=== PATIENT | male | born 1945 | race Caucasian/White ===

== ENCOUNTER 2016-11-17 15:40 | Emergency (ER) | payer OTHER ==
[~2016-11-17 15:40] MED LIST: ASPI81TA82 PO; FINA5TAB77 PO; LISI-363 PO; MAGN400C2 PO; OMEP20TA39 PO; REST7.5C PO; TERA10CA3 PO; TRAZ100 PO; VALP250 PO; VENL-39 PO; VITA500T49 PO; ZOCO80TA PO
[2016-11-17 15:43] VITALS: BP 189/77; PULSE 69; RESP 20; TEMP 98.9; O2SAT 98
--- NOTE | 2016-11-17 15:54 | PD ---
Physical Exam Time Seen by Provider: 15:50 Narrative Pt presents to the ED for evaluation low heart rate with lightheadedness for the past 3 days. States his heart rate has been in the 40s. C/o left shoulder pain since last night[facility] Awaiting bed placement. Data Data Last Documented VS Vital Signs Date Time Temp Pulse Resp B/P Pulse Ox O2 Delivery O2 Flow Rate FiO2 11/17/16 15:43 98.9 69 20 189/77 98 Room Air MDM Supervised Visit with NESTOR: Nati Daniels Nov 17, 2016 15:54
[2016-11-17 16:24] VITALS: BP 156/85; O2SAT 97
[2016-11-17 16:29] LABS: AUTOMATED NEUTROPHIL # 4.6 TH/MM3 (1.8-7.7); BASOPHIL % 0.5 % (0.0-2.0); EOSINOPHIL % 0.1 % (0.0-4.0); LYMPH % 24.4 % (9.0-44.0); LYMPHOCYTE # 1.6 TH/MM3 (1.0-4.8); MEAN CELL VOLUME 70.6 FL (80.0-100.0); MEAN CORPUSCULAR HEMOGLOBIN 22.9 PG (27.0-34.0); MEAN CORPUSCULAR HGB CONC 32.4 % (32.0-36.0); MONO % 6.2 % (0.0-8.0); NEUT % 68.8 % (16.0-70.0); PLATELET COUNT 252 TH/MM3 (150-450); RED BLOOD COUNT 4.96 MIL/MM3 (4.50-5.90); RED CELL DISTRIBUTION WIDTH 15.3 % (11.6-17.2); WHITE BLOOD COUNT 6.7 TH/MM3 (4.0-11.0)
[2016-11-17] MEDS ORDERED: SODIUM CHLORIDE 0.9% FLUSH 10 ML FLUSH IVF PRN (16:30)
[2016-11-17 16:32] LABS: HEMO FLAGS AUTO DIFF
--- NOTE | 2016-11-17 16:33 | PD ---
HPI . Dizziness Chief Complaint: Cardiac Complaint Time Seen by Provider: 16:09 Travel History International Travel<30 days: No Contact w/Intl Traveler<30days: No Traveled to known affect area: No History of Present Illness HPI Patient presents to us complaining with dizziness and slow heart rate. He has a home blood pressure [facility] His monitor has been reporting a low heart rate for the last couple days. Patient reports that he has been feeling intermittently dizzy. He states that the dizziness is so severe that it has caused him to almost fall twice. He was unable to further characterize the dizziness. He denies any chest pain but states he did have some left shoulder pain. He denied shortness of breath to me. He does complain with some nausea but denies vomiting or diarrhea. He has not had any fever. He denies blurred vision. He has not noted any exacerbating or relieving factors. He states that he has been absent minded the last couple of days. PFSH Past Medical History Hx Anticoagulant Therapy: Yes (81 MG ASA) Anemia: Yes Anxiety: Yes Depression: Yes Cardiovascular Problems: Yes High Cholesterol: Yes Chest Pain: Yes COPD: Yes Coronary Artery Disease: Yes Diminished Hearing: No Gastrointestinal Disorders: Yes (COLON POYPS) GERD: Yes Genitourinary: Yes (BPH, SCROTAL/TESTICULAR MASS) Headaches: Yes Hypertension: Yes Musculoskeletal: Yes (DDD) Neurologic: Yes (R CARPLE TUNNEL) Psychiatric: Yes (PTSD, DEPRESSIVE DISORDER) Immunizations Current: Yes Past Surgical History Appendectomy: Yes Social History Alcohol Use: Yes (Occ.) Tobacco Use: Yes (LESS THAN 1/2 PPD) Substance Use: No Allergies-Medications (Allergen,Severity, Reaction): Coded Allergies: No Known Allergies (Unverified , 04/07/16) Reported Meds & Prescriptions Reported Meds & Active Scripts Active Reported Vitamin B12 (Cyanocobalamin) 500 Mcg Tab 250 Mcg PO BID Lisinopril 20 mg (Lisinopril) 20 Mg Tab 1 Tab PO DAILY Restoril 7.5 mg (Temazepam) 7.5 Mg Cap 1 Cap PO HS Depakene 250 mg (Valproic Acid) 250 Mg Cap 1 Cap PO BID Venlafaxine Hcl Er 75 Mg Tab (Venlafaxine HCl) 75 Mg Domingo 150 Mg PO DAILY Magnesium (Magnesium Oxide (Mg Supplement) 400 Mg Cap 800 Mg PO DAILY Trazodone Hcl (Trazodone HCl) 100 Mg Tab 100 Mg PO HS Aspir-81 (Aspirin) 81 Mg Tab 81 Mg PO HS Zocor 80 mg (Simvastatin) 80 Mg Tab 0.5 Tab PO HS Proscar 5 Mg Tab (Finasteride) 5 Mg Tab 5 Mg PO DAILY Terazosin Hcl (Terazosin HCl) 10 Mg Cap 10 Mg PO HS Hm Omeprazole (Omeprazole) 20 Mg Tab 40 Mg PO DAILY Review of Systems Except as stated in HPI: all other systems reviewed are Neg General / Constitutional: No: Fever, Chills Eyes: No: Blurred Vision HENT: Positive: Lightheadedness, No: Headaches Cardiovascular: Positive: Irregular Rhythm, No: Chest Pain or Discomfort Respiratory: No: Shortness of Breath Gastrointestinal: Positive: Nausea, No: Vomiting, Diarrhea Genitourinary: Positive: Hesitancy Musculoskeletal: Positive: Arthralgias Neurologic: Positive: Weakness, Dizziness, No: Syncope, Focal Abnormalities, Headache, Change in Mentation, Slurred Speech, Paresthesia, Incontinence Physical Exam Narrative GENERAL: Patient is awake and alert and does not appear to be in any acute distress. SKIN: Warm and dry. HEAD: Atraumatic. Normocephalic. EYES: Pupils equal and round. Extraocular movements are intact. ENT: No nasal bleeding or discharge. Mucous membranes pink and moist. NECK: Trachea midline. Neck is supple. CARDIOVASCULAR: He is in a bigeminy rhythm. The PVCs are not producing a pulse. So, his effective heart rate is about 36. RESPIRATORY: No accessory muscle use. Lungs are clear with full air movement throughout. GASTROINTESTINAL: Abdomen soft, non-tender, nondistended. MUSCULOSKELETAL: No obvious deformities. No edema. NEUROLOGICAL: Awake and alert. No obvious cranial nerve deficits. Motor grossly within normal limits. Normal speech. PSYCHIATRIC: Appropriate mood and affect; insight and judgment normal. Data Data Last Documented VS Vital Signs Date Time Temp Pulse Resp B/P Pulse Ox O2 Delivery O2 Flow Rate FiO2 11/17/16 16:24 97 11/17/16 16:24 76 11/17/16 16:24 156/85 11/17/16 15:43 98.9 20 Room Air Orders Electrocardiogram (11/17/16 ) Basic Metabolic Panel (Bmp) (11/17/16 16:18) Ckmb (Isoenzyme) Profile (11/17/16 16:18) Complete Blood Count With Diff (11/17/16 16:18) D-Dimer (11/17/16 16:18) Magnesium (Mg) (11/17/16 16:18) Prothrombin Time / Inr (Pt) (11/17/16 16:18) Act Partial Throm Time (Ptt) (11/17/16 16:18) Troponin I (11/17/16 16:18) Chest, Single Ap (11/17/16 16:18) Ecg Monitoring (11/17/16 16:18) Bilateral Bp Monitoring (11/17/16 16:18) Iv Access Insert/Monitor (11/17/16 16:18) Oximetry (11/17/16 16:18) Sodium Chloride 0.9% Flush (Ns Flush) (11/17/16 16:30) Ct Brain W/O Iv Contrast(Rout) (11/17/16 16:18) CKMB (11/17/16 16:20) CKMB% (11/17/16 16:20) Ct Pulmonary Angiogram (11/17/16 17:45) Iohexol 350 Inj (Omnipaque 350 Inj) (11/17/16 18:26) Labs Laboratory Tests Test 11/17/16 16:20 White Blood Count 6.7 TH/MM3 Red Blood Count 4.96 MIL/MM3 Hemoglobin 11.3 GM/DL Hematocrit 35.0 % Mean Corpuscular Volume 70.6 FL Mean Corpuscular Hemoglobin 22.9 PG Mean Corpuscular Hemoglobin 32.4 % Concent Red Cell Distribution Width 15.3 % Platelet Count 252 TH/MM3 Mean Platelet Volume 8.0 FL Neutrophils (%) (Auto) 68.8 % Lymphocytes (%) (Auto) 24.4 % Monocytes (%) (Auto) 6.2 % Eosinophils (%) (Auto) 0.1 % Basophils (%) (Auto) 0.5 % Neutrophils # (Auto) 4.6 TH/MM3 Lymphocytes # (Auto) 1.6 TH/MM3 Monocytes # (Auto) 0.4 TH/MM3 Eosinophils # (Auto) 0.0 TH/MM3 Basophils # (Auto) 0.0 TH/MM3 CBC Comment AUTO DIFF Differential Comment AUTO DIFF CONFIRMED Platelet Estimate NORMAL Platelet Morphology Comment NORMAL Prothrombin Time 11.1 SEC Prothromb Time International 1.0 RATIO Ratio Activated Partial 24.6 SEC Thromboplast Time D-Dimer Quantitative (PE/DVT) 0.59 MG/L FEU Sodium Level 141 MEQ/L Potassium Level 3.9 MEQ/L Chloride Level 108 MEQ/L Carbon Dioxide Level 27.9 MEQ/L Anion Gap 5 MEQ/L Blood Urea Nitrogen 12 MG/DL Creatinine 1.13 MG/DL Estimat Glomerular Filtration 64 ML/MIN Rate Random Glucose 127 MG/DL Calcium Level 8.2 MG/DL Magnesium Level 2.0 MG/DL Total Creatine Kinase 674 U/L Creatine Kinase MB 1.4 NG/ML Creatine Kinase MB % 0.2 % Troponin I LESS THAN 0.02 NG/ML MDM Medical Decision Making Medical Screen Exam Complete: Yes Emergency Medical Condition: Yes Medical Record Reviewed: Yes (patient has been seen here before with very similar symptoms. He was hemodynamically stable and was subsequently discharged to home.) Interpretation(s) EKG shows bigeminy. No acute ischemic changes. Differential Diagnosis Differential diagnosis of palpitations includes but is not limited to anxiety, SVT, aVF with RVR, VT, sinus tachycardia, PVCs Narrative Course Patient presents with dizziness and bigeminy. Systolic blood pressures about 160. CBC & BMP Diagram 11/17/16 16:20 Troponin is negative. D-dimer is 0.59. He has a positive PERC score based on his age. Last Impressions Head CT 11/17/168 Signed Impressions: Service Date/Time: Thursday, November 17, 2016 16:38 - CONCLUSION: Normal examination. Ward Foster MD Chest X-Ray 11/17/168 Signed Impressions: Service Date/Time: Thursday, November 17, 2016 16:42 - CONCLUSION: No acute disease. Ward Foster MD The chest x-ray was independently viewed by me. CT for PE was negative. Patient reports that he feels fine and is ready to go home. Diagnosis Primary Impression: Bigeminy Patient Instructions: General Instructions, Premature Ventricular Contractions (DC) Disposition: 01 DISCHARGE HOME Condition: Stable Alina James MD Nov 17, 2016 16:33
[2016-11-17 16:44] LABS: APTT (PATIENT) 24.6 SEC (24.3-30.1); PROTHROMBIN TIME - PATIENT 11.1 SEC (9.8-11.6)
[2016-11-17 16:46] LABS: ANION GAP 5 MEQ/L (5-15); BICARBONATE 27.9 MEQ/L (21.0-32.0); BLOOD UREA NITROGEN 12 MG/DL (7-18); CHLORIDE 108 MEQ/L (98-107); GLOMERULAR FILTRATION RATE 64 ML/MIN (>89); POTASSIUM 3.9 MEQ/L (3.5-5.1); SODIUM (NA) 141 MEQ/L (136-145)
[2016-11-17 16:49] LABS: CREATINE KINASE 674 U/L (39-308)
--- NOTE | 2016-11-17 16:55 | RADRPT ---
EXAM DATE/TIME: 11/17/2016 16:38 [facility] COMPARISON: CT BRAIN W/O CONTRAST, April 18, 2015, 15:30. INDICATIONS : Dizziness. RADIATION DOSE: 43.58 CTDIvol (mGy) MEDICAL HISTORY : Cardiovascular disease. Hypertension. SURGICAL HISTORY : Appendectomy. ENCOUNTER: Initial ACUITY: 3 days PAIN SCALE: 2/10 LOCATION: Bilateral cranial TECHNIQUE: Multiple contiguous axial images were obtained of the head. Using automated exposure control and adj ustment of the mA and/or kV according to patient size, radiation dose was kept as low as reasonably a chievable to obtain optimal diagnostic quality images. FINDINGS: CEREBRUM: The ventricles are normal for age. No evidence of midline shift, mass lesion, hemorrhage or acute in farction. No extra-axial fluid collections are seen. POSTERIOR FOSSA: The cerebellum and brainstem are intact. The 4th ventricle is midline. The cerebellopontine angle i s unremarkable. EXTRACRANIAL: The visualized portion of the orbits is intact. SKULL: The calvaria is intact. No evidence of skull fracture. CONCLUSION: Normal examination. Ward Foster MD on November 17, 2016 at 16:52 Board Certified Radiologist. This report was verified electronically.
[2016-11-17 17:01] LABS: CKMB 1.4 NG/ML (0.5-3.6)
[2016-11-17 17:25] LABS: PLATELET ESTIMATE SMEAR NORMAL (NORMAL); PLATELET MORPHOLOGY NORMAL (NORMAL); SCAN/DIFF AUTO DIFF CONFIRMED
--- NOTE | 2016-11-17 17:31 | RADRPT ---
EXAM DATE/TIME: 11/17/2016 16:42 [facility] COMPARISON: CHEST SINGLE AP, April 07, 2016, 17:20. INDICATIONS : Low heart rate. Patient was sent from the [facility] with a low heart rate. MEDICAL HISTORY : Hypertension. SURGICAL HISTORY : None. ENCOUNTER: Initial ACUITY: 3 days PAIN SCORE: 0/10 LOCATION: Bilateral chest FINDINGS: A single view of the chest demonstrates the lungs to be symmetrically aerated without evidence of mas s, infiltrate or effusion. The cardiomediastinal contours are unremarkable. Osseous structures are intact. CONCLUSION: No acute disease. Ward Foster MD on November 17, 2016 at 17:29 Board Certified Radiologist. This report was verified electronically.
[2016-11-17] MEDS ORDERED: IOHEXOL 350 MG/ML 10 ML VIAL (for RAD DIAG) IV ONE (18:26)
--- NOTE | 2016-11-17 18:54 | RADRPT ---
EXAM DATE/TIME: 11/17/2016 18:21 [facility] COMPARISON: No previous studies available for comparison. INDICATIONS : Shortness of breath for 3 days; evaluate for pulmonary embolism. IV CONTRAST: 75 cc Omnipaque 350 (iohexol) IV RADIATION DOSE: 23.21 CTDIvol (mGy) MEDICAL HISTORY : Cardiovascular disease. Hypertension. SURGICAL HISTORY : None. ENCOUNTER: Initial ACUITY: 3 days PAIN SCALE: 0/10 LOCATION: chest TECHNIQUE: Volumetric scanning of the chest was performed using a pulmonary embolism protocol MIP images were re constructed. Using automated exposure control and adjustment of the mA and/or kV according to patien t size, radiation dose was kept as low as reasonably achievable to obtain optimal diagnostic quality images. FINDINGS: PULMONARY ARTERIES: No filling defects are seen in the pulmonary arteries through the segmental level. However, clot is s een in the lower pulmonary veins, most conspicuous on the left. LUNGS: Mild dependent atelectasis of both bases. PLEURAE: There is no pleural thickening or pleural effusion. MEDIASTINUM: There is good visualization of the great vessels of the middle mediastinum. No evidence of mediastin al or hilar adenopathy/mass. MUSCULOSKELETAL: Within normal limits for patient age. MISCELLANEOUS: Small fat-containing Bochdalek hernias on both sides. There is a small hiatal hernia. CONCLUSION: 1. No pulmonary embolus. 2. Partially thrombosed inferior pulmonary veins on both sides, especially the left. 3. Mild bibasilar atelectasis. 4. Incidentally seen small fat-containing Bochdalek hernias and small hiatal hernia. 5. There is left-sided predominant coronary artery calcification. Timothy Avilez MD on November 17, 2016 at 18:50 Board Certified Radiologist. This report was verified electronically.
[2016-11-17 19:58] VITALS: BP 169/84
--- NOTE | 2016-11-18 21:02 | EKG ---
Date Performed: 11/17/2016 Time Performed: 16:07:47 PTAGE: 71 years EKG: Sinus rhythm WITH FREQUENT VENTRICULAR PREMATURE COMPLEXES IN A BIGEMINAL PATTERN ABNORMAL RHYTHM ECG NO PREVIOUS TRACING DOCTOR: Rusty Mcintosh Interpretating Date/Time 11/18/2016 21:01:25
== END 2016-11-17 20:19 | disposition home or self-care (01) ==
LOC: NEPC 15:40
DX: R00.8 Other abnormalities of heart beat (principal); R42 Dizziness and giddiness; R06.02 Shortness of breath; I49.3 Ventricular premature depolarization; E78.00 Pure hypercholesterolemia, unspecified; J44.9 Chronic obstructive pulmonary disease, unspecified; I25.10 Atherosclerotic heart disease of native coronary artery without angina pectoris; I10 Essential (primary) hypertension; F43.10 Post-traumatic stress disorder, unspecified; F17.210 Nicotine dependence, cigarettes, uncomplicated; K21.9 Gastro-esophageal reflux disease without esophagitis
CPT/HCPCS: 70450; 71010; 71275; 80048; 82550; 82552; 83735; 84484; 85025; 85379; 85610; 85730; 93005; 99284; Q9967

== ENCOUNTER 2017-02-10 07:52 | Day surgery (SDC) | payer OTHER ==
[~2017-02-10] VITALS: Ht 160 cm; Wt 67.6 kg
[2017-02-10] MEDS ORDERED: NS 1000P @30 MLS/HR (KVO) IV SCH (08:30)
[2017-02-10 08:31] VITALS: BP 122/74; PULSE 59; RESP 18; TEMP 98.2; O2SAT 97
[2017-02-10 08:38] LABS: AUTOMATED NEUTROPHIL # 3.7 TH/MM3 (1.8-7.7); BASOPHIL % 0.4 % (0.0-2.0); EOSINOPHIL % 0.3 % (0.0-4.0); HEMATOCRIT 33.6 % (39.0-51.0); HEMO FLAGS DIFF FINAL; LYMPH % 32.3 % (9.0-44.0); MEAN CELL VOLUME 71.6 FL (80.0-100.0); MEAN CORPUSCULAR HEMOGLOBIN 22.9 PG (27.0-34.0); MEAN CORPUSCULAR HGB CONC 31.9 % (32.0-36.0); MONO % 6.5 % (0.0-8.0); NEUT % 60.5 % (16.0-70.0); PLATELET COUNT 291 TH/MM3 (150-450); RED BLOOD COUNT 4.69 MIL/MM3 (4.50-5.90); RED CELL DISTRIBUTION WIDTH 15.6 % (11.6-17.2); WHITE BLOOD COUNT 6.1 TH/MM3 (4.0-11.0)
[2017-02-10] MEDS ORDERED: SIMV80TA PO (08:38)
[2017-02-10] MEDS ORDERED: MAGN400T2 PO (08:38)
[2017-02-10] MEDS ORDERED: ASPI81TA11 PO (08:38)
[2017-02-10] MEDS ORDERED: TEMA7.5C PO (08:38)
[2017-02-10] MEDS ORDERED: VITA250L BUCCAL (08:38)
[2017-02-10] MEDS ORDERED: LISI-519 PO (08:38)
[2017-02-10] MEDS ORDERED: FINA5TAB2 PO (08:38)
[2017-02-10] MEDS ORDERED: TERA10CA3 PO (08:38)
[2017-02-10] MEDS ORDERED: OMEP20TA PO (08:38)
[2017-02-10] MEDS ORDERED: TRAZ100T6 PO (08:38)
[2017-02-10 08:50] LABS: APTT (PATIENT) 24.6 SEC (24.3-30.1); PROTHROMBIN TIME - PATIENT 10.7 SEC (9.8-11.6)
[2017-02-10 08:53] LABS: BICARBONATE 28.4 MEQ/L (21.0-32.0); POTASSIUM 3.9 MEQ/L (3.5-5.1)
[2017-02-10] MEDS ORDERED: HEPARIN-NS/PF INJ 500 ML ONE (10:23)
[2017-02-10] MEDS ORDERED: MIDAZOLAM HCL 2 MG/2 ML VIAL ONE (10:24)
[2017-02-10] MEDS ORDERED: VERAPAMIL HCL 5 MG/2 ML VIAL ONE (10:24)
[2017-02-10] MEDS ORDERED: HEPARIN SODIUM - IV 10,000 UNITS/10 ML VIAL ONE (10:24)
[2017-02-10] MEDS ORDERED: NITROGLYCERIN INJ 5 ML ONE (10:24)
[2017-02-10] MEDS ORDERED: IOHEXOL 350 MG/ML 50 ML BTL (for Cath Lab) OTHER ONE (10:39)
--- NOTE | 2017-02-10 11:42 | CATHPROC ---
[facility] HIS Report Study Information Study Number Admission Scheduled Start Study Start [id number] Feb 10 2017 7:52AM 02/10/2017 Feb 10 2017 10:10AM [facility] Cardiac Catheterization Admit Source Facility Department Other [facility] - Physical Therapist Clinic Director Physician and Clinical Staff Initial Eric Smith Golf Course Manager Tonya Howard RN Golf Course Manager Veronica Garay,MARLONRN Other cathlab, cathlab Recorder Amelia Casas,OBSTETRICS SPECIALIST TECH2 Scrub Rodríguez Rey RCIS(BS) Procedures Performed Procedure Location (Site) Vessel Name Coronary Angiograms LCA Left Coronary Coronary Angiograms RCA Right Coronary IVUS LAD Ost Left Coronary L Heart Cath PTCA ADD ON'S Wire insertion Radial (right) Radial Art. Equipment Time Music Orchestrator Description Size Mfg Part Number Used/Scraped WIRE, BALANCE MIDDLEWEIGHT [id number] 11:08 [employer] 190CM Used 190CM *[id number] TRANSDUCER, TRUWAVE [id number] 10:11 WAITE HOWARD * Used W/STOCKCOCK *[id number] *[id number] [id number] *[id number] 10:11 [employer] PACK, CCL CUSTOM * Used *[id number] 10:11 [employer] SUPPORT, ARTERIAL ADULT [id number] Used [id number] 11:06 [employer]/AVE EBU 3.5 Z2 GUIDE CATHETER FR 6 Used *[id number] 11:07 Ooploo 30 JOELLE INDEFLATOR Used *[id number] BAND, RADIAL COMPRESSION TR [id number] 11:30 [employer]oploo 29CM Used LARGE 29 *[id number] 10:39 [employer] WIRE, EXCHANGE 260CM 3MMJ 260CM Used *[id number] 10:11 NAMIC MANIFOLD, 4 PORT * Used *[id number] 10:11 NYCOMED OMNIPAQUE, 350 MG, 150ML 150ML [id number] Used [id number] 10:11 [employer],WARM AIR CCL * Used *[id number] SHEATH, FR6 TRANSRADIAL 10:11 [employer] MEDICAL FR 6 [id number] Used SLENDER 10CM CATHETER, [employer] [place] [place] [id number] 11:11 VOLCAN[employer] Used IMAGING *[id number] Equipment Model, Serial, Lot Number and Expiration Data Description Model Number Serial Number Lot Number Expiration Date CATHETER, [employer] [id number] 11-05-2018 IMAGING History: Current Medications Medication Dosage/Unit Route Frequency Last Date/Time Taken ASA LISINOPRIL Statins (any) History: Allergies Allergy Reaction No Known Allergies History: Risk Factors Family History of Hypertension Dyslipidemia Previous NV Previous Heart Failure Premature CAD Yes Yes No No No Prior Valve Prior PCI Prior CABG Surgery No No No Cerebrovascular Peripheral Artery Chronic Lung On Dialysis Diabetes Disease Disease Disease No No No No No History: Symptoms/Diagnosis Selection Items Angina-unstable History: Stress Tests Stress or Imaging Studies Performed Yes Standard Exercise Stress Test No Stress Echo No Stress Test SPECT No Stress Test CMR Stress Test CMR Result Yes Positive Cardiac CTA Coronary Calcium Score No No History: Other Disease Selection Items HTN History: Other Current Smoker Method Years Used Yes Cigarettes 50 Comment 1/4 pack per day Labs Hgb (g/dl) Hct (%) RBC (MIL/MM3) WBC (l/cumm) Platelets (thousands) 11.60-17.00 35.00-51.00 4.00-5.90 4.00-11.00 150.00-450.00 10.7 33.6 4.6 6.1 291 Glucose (mg/dl) BUN (mg/dl) Creatinine (mg/dl) BUN:Creatinine (1:x) 74.00-106.00 7.00-18.00 0.50-1.30 10.00-20.00 97 16 1.0 16 Na (meq/l) K (meq/l) Cl (meq/l) CO2 (mmol/L) Ca (mg/dl) 136.00-145.00 3.50-5.10 98.00-107.00 21.00-32.00 8.50-10.10 142 3.9 108 28.4 8.1 PT (sec) PTT (sec) INR (PTT:PT) 9.80-11.60 24.30-30.10 0.90-1.10 10.7 24.6 1 Medication Medication Total Dose (Bolus/Oral) Medication Total Dosage/Unit 1% XYLOCAINE 10 mL FENTANYL 25 mcg HEPARIN 4800 units RADIAL COCKTAIL 5 mL (Bolus) VERSED 0.5 mg Medications (Bolus/Oral) Medication Time Given Dosage/Unit Administered By Reason VERSED 02/10/2017 10:48:43 AM 0.5 mg Tonya Howard 0.5 mg VERSED given in lab by Tonya Howard RN in Right Antecubital via Peripheral IV. Ordered b y Eric Atkins. FENTANYL 02/10/2017 10:49:07 AM 25 mcg Tonya Howard 25 mcg FENTANYL given in lab by Tonya Howard RN in Left Antecubital via Peripheral IV. Ordered by Eric Atkins. 1% XYLOCAINE 02/10/2017 10:50:01 AM 10 mL rEic Atkins 10 mL 1% XYLOCAINE given in lab by Eric Atkins in Right Radial via Subcutaneous. Ordered by Eric Millard. RADIAL COCKTAIL 02/10/2017 10:50:57 AM 5 mL (Bolus) Eric Atkins 5 mL (Bolus) RADIAL COCKTAIL given in lab by Eric Atkins via Radial. Using [Solution Name]. Ord ered by Eric Atkins. 2800 heparin,2.5verapamil,200nitro HEPARIN 02/10/2017 11:05:58 AM 4800 units Tonya Howard 4800 units HEPARIN given in lab by Tonya Howard RN in Left Antecubital via Peripheral IV. Order ed by Eric Atkins. Medication (Drip) Medication Time Given Dosage/Unit Concentration/Unit Diluent (ml) Solution IV Solutions 02/10/2017 10:26:28 AM 0 mL (IV) 500 NaCl .9 IV Solutions given in lab by Tonya Howard RN in Left Antecubital via Peripheral IV. Pump/Drip F low = 20 ml/hr using NaCl .9. Ordered by Eric Atkins. Initial Case Assessment Cardiovascular HR NIBP 55 119/74 Edema Present Skin color Skin None Normal Warm Dry Circulatory - Right Pulses Dorsalis Pedis Femoral 2 2 Scale (0,1,2,3,4,d) Circulatory - Left Pulses Dorsalis Pedis Femoral 2 2 Scale (0,1,2,3,4,d) Neurological State Oriented to time-place- Alert Moves all extremities person Respiration - General Respiration Rate SpO2 (%) (B/min) 16 99 Final Case Assessment Cardiovascular HR NIBP 59 127/71 Edema Present Skin color Skin None Normal Warm Dry Circulatory - Right Pulses Dorsalis Pedis Femoral 2 2 Scale (0,1,2,3,4,d) Circulatory - Left Pulses Dorsalis Pedis Femoral 2 2 Scale (0,1,2,3,4,d) Neurological State Oriented to time-place- Alert Moves all extremities person Respiration - General Respiration Rate SpO2 (%) (B/min) 16 100 Chronological Log Time Study Chronological Log 10:21:57 Patient arrived via Bed. 10:21:58 Patient Name, D.O.B, / Armband Verified By R.N. Vitals capture started with the following parameters, Patient=Adult, Interval=5 min, Initial Pr ibggei=404 mmHg, 10:26:14 Deflation Rate=5 mmHg 10:26:18 Consent signed by the physician and the patient and verified by the Physical Therapist Clinic Director staff. 10:26:19 Pre-op and post- op instructions given; patient acknowledges understanding of instructions. 10:26:21 Patient has been NPO for More than 6Hrs. 10:26:22 Skin Breakdown- 10:26:23 Patient Warmer Placed on the Table. 10:26:24 Cordelia Prominences Protected 10:26:27 A # 20 IV was noted in the Antecubital (left). Grade = 0 IV Solutions given in lab by Tonya Howard, RN in Left Antecubital via Peripheral IV. Pump/ Drip Flow = 20 ml/hr 10:26:28 using NaCl .9. Ordered by Eric Atkins. 10:26:29 History and physical on the chart or being dictated. 10:26:55 HR=56 bpm, YCDA=575/74 mmhg, SpO2=99.0 %, Resp=18 B/min, Pain=0, Turner=10, Angela=2 10:27:16 Reference ECG taken Assessment: Initial Case, HR=55 BPM, GIED=971/74 mmhg, Edema=None, Color=Normal, Skin = Warm, D ry Right Pulses: Alphonso Ped=2, Femoral=2 10:27:26 Left Pulses: Alphonso Ped=2, Femoral=2 Neurological: State=Alert, Ox3, ENCARNACION Respiration: Resp=16 B/min, SpO2=99 % 10:32:31 HR=54 bpm, EWGD=645/73 mmhg, PjT4=801.0 %, Resp=15 B/min, Pain=0, Turner=10, Angela=2 10:36:51 HR=55 bpm, QTQQ=633/75 mmhg, SpO2=98.0 %, Resp=19 B/min, Pain=0, Turner=10, Angela=2 10:37:38 Right Radial and right groin prepped with 2% chlorhexidine, and with a 3 min. waiting time. 10:39:32 Pressure channel 1 zeroed. 10:41:57 HR=56 bpm, YOHZ=751/73 mmhg, SpO2=99.0 %, Resp=17 B/min, Pain=0, Turner=10, Angela=2 10:46:56 HR=56 bpm, YROD=311/73 mmhg, SpO2=99.0 %, Resp=14 B/min, Pain=0, Turner=10, Angela=2 Time Out. Correct patient, correct procedure,correct physician, power injector not loaded with contrast with surgical 10:48:17 team present. Time Out Concurred by , individual staff in procedure 10:48:41 Case Start 0.5 mg VERSED given in lab by Tonya Howard RN in Right Antecubital via Peripheral IV. Ord ered by Wilbert 10:48:43 Eric. 25 mcg FENTANYL given in lab by Tonya Howard RN in Left Antecubital via Peripheral IV. Or dered by Wilbert 10:49:07 Eric. 10 mL 1% XYLOCAINE given in lab by Eric Atkins in Right Radial via Subcutaneous. Ordered by Wilbert, 10:50:01 Eric. 10:50:25 Access site was Radial Artery. 5 mL (Bolus) RADIAL COCKTAIL given in lab by Eric Atkins via Radial. Using [Solution Name ]. Ordered by 10:50:57 Eric Atkins. 2800 heparin,2.5verapamil,200nitro A JR 4.0 INFINITI CATHETER FR 5 was advanced over a wire. OMNIPAQUE, 350 MG, 150ML 150ML was us ed for 10:51:55 injections. 10:51:57 HR=57 bpm, CXVS=611/62 mmhg, SpO2=97.0 %, Resp=18 B/min, Pain=0, Turner=10, Angela=2 Recorded Pressure: LV, HR=58, Condition=Condition 1 10:53:41 (Left Ventricle) LV 91/1/5 Recorded Pressure: LV, Ao, HR=59, Condition=Condition 1 10:54:04 (Left Ventricle) LV 103/2/4, (Aorta) Ao 101/52/72 10:54:45 The RCA was injected and visualized at various angles. OMNIPAQUE, 350 MG, 150ML 150ML used . Recorded Pressure: Ao, HR=61, Condition=Condition 1 10:54:52 (Aorta) Ao 103/60/79 After removing the current catheter a JL 3.5 INFINITI CATHETER FR 5 was advanced over a WIRE, E XCHANGE 260CM 10:55:35 3MMJ 260CM. 10:56:52 HR=63 bpm, GCZR=144/63 mmhg, SpO2=93.0 %, Resp=13 B/min, Pain=0, Turner=10, Angela=2 11:00:16 The LCA was injected and visualized at various angles. OMNIPAQUE, 350 MG, 150ML 150ML used . 11:01:51 HR=61 bpm, AVJV=285/64 mmhg, SpO2=94 %, Resp=20 B/min, Pain=0, Turner=10, Angela=2 4800 units HEPARIN given in lab by Tonya Howard, RN in Left Antecubital via Peripheral IV. Ordered by Wilbert, 11:05:58 Eric. After removing the current catheter a EBU 3.5 Z2 GUIDE CATHETER FR 6 was advanced over a WIRE, EXCHANGE 11:06:43 260CM 3MMJ 260CM. 11:06:56 HR=59 bpm, FMUC=667/65 mmhg, SpO2=97.0 %, Resp=18 B/min, Pain=0, Turner=10, Angela=2 11:07:13 contrast and 30 JOELLE INDEFLATOR added. 11:11:57 HR=57 bpm, ZSXE=366/70 mmhg, SpO2=98.0 %, Resp=21 B/min 11:11:58 A WIRE, BALANCE MIDDLEWEIGHT 190CM 190CM was inserted via Radial (right). 11:14:14 Interventional wire has crossed the lesion 11:16:21 An CATHETER, [employer] IMAG[employer] was advanced through the lesion. Images saved onto IVUS hard drive 11:16:54 HR=57 bpm, ORUK=303/69 mmhg, SpO2=98.0 %, Resp=12 B/min, Pain=0, Turner=10, Angela=2 11:19:04 IVUS in progress using CATHETER, [employer] IMAGING 11:21:57 HR=57 bpm, OMDX=791/72 mmhg, SpO2=97.0 %, Resp=15 B/min, Pain=0, Turner=10, Angela=2 11:25:41 IVUS catheter removed 11:26:23 A WIRE, EXCHANGE 260CM 3MMJ 260CM was inserted via Radial (right). 11:27:00 HR=60 bpm, PANN=912/68 mmhg, IqJ6=021.0 %, Resp=16 B/min, Pain=0, Turner=10, Angela=2 11:29:30 Catheter was removed 11:29:55 Case End 11:29:59 Catheter(s) removed without difficulty Radial Compression Device Used. 9 mLs of air placed in BAND, RADIAL COMPRESSION TR LARGE 29 29 CM. Affected 11:30:09 hand 99 % O2 saturation. 11:30:41 No case complications noted. 11:31:57 HR=59 bpm, QAWM=117/71 mmhg, UxG0=434.0 %, Resp=16 B/min, Pain=0, Turner=10, Angela=2 11:32:44 Cine recording checked. 11:33:23 Vitals capture stopped. Assessment: Final Case, HR=59 BPM, BOBR=970/71 mmhg, Edema=None, Color=Normal, Skin = Warm, Dr y Right Pulses: Alphonso Ped=2, Femoral=2 11:33:34 Left Pulses: Alphonso Ped=2, Femoral=2 Neurological: State=Alert, Ox3, ENCARNACION Respiration: Resp=16 B/min, UaE6=274 % 11:35:15 Bedside Report will be given. 11:35:17 Contrast Scanned 11:35:19 A Left Heart Cath was performed. 11:35:20 [facility]35[facility] Clinical correlaton risk stratification. End Study - Contrast Media Used In Study Contrast Total Opened (mL) Total Used (mL) Total Wasted (mL) Omnipaque 50 50 0 End Study - Maximum Contrast Load Max Contrast Load (mL) 338.0 End Study - Radiation Exposure Fluoro Time (minutes) 10.7 End Study - Patient Disposition Complications Transferred To Telemetry Bed
[2017-02-10] MEDS ORDERED: MISC INFORMATION XX ONE (11:45)
[2017-02-10] MEDS ORDERED: SODIUM CHLORIDE 0.9% FLUSH 10 ML FLUSH IV FLUSH PRN (13:00)
[2017-02-10] MEDS ORDERED: MUPIROCIN 2% OINT 1 APPLIC/GM SYR EACH NARE SCH (13:00)
[2017-02-10] MEDS ORDERED: CHLORHEXIDINE GLUCONATE 4% SOLN 120 ML BTL TOPICAL SCH (13:00)
--- NOTE | 2017-02-10 15:00 | RADRPT ---
EXAM DATE/TIME: 02/10/2017 13:27 [facility] COMPARISON: No previous studies available for comparison. INDICATIONS : Preop cardiac surgery. MEDICAL HISTORY : [place]. COPD. Hypercholesterol. Hypertension. BPH. SURGICAL HISTORY : Appendectomy. ENCOUNTER: Initial ACUITY: 1 day PAIN SCORE: 0/10 LOCATION: Bilateral neck PEAK SYSTOLIC VELOCITIES (cm/sec): ICA/CCA RATIO: Right: 1.6 Left: 1.2 ICA: Right: 121.0 Left: 89.2 CCA: Right: 75.7 Left: 72.4 ECA: Right: 90.3 Left: 49.7 VERTEBRAL: Right: 67.2 antegrade Left: 64.6 antegrade Elevated flow velocities and ICA/CCA ratios have been found to correlate with increased degrees of vessel stenosis, calculated as percentage of diameter relative to a normal segment of distal ICA/CCA FINDINGS: RIGHT CAROTID: No significant stenosis is visualized. There is mild calcified and noncalcified plaque in the mid an d distal common carotid artery and moderate calcified plaque in the carotid bulb. The waveforms are w ithin normal limits.LEFT CAROTID: No significant stenosis is visualized. There is mild calcified plaque in the distal common carotid a rtery and mild to moderate calcified plaque in the carotid bulb. The waveforms are within normal limi ts. VERTEBRAL ARTERIES: Antegrade flow is seen in both vertebral arteries. MISCELLANEOUS: None. CONCLUSION: 1. Moderate atherosclerotic plaque within the carotid bulbs bilaterally. However, velocity measuremen ts indicate less than 50% stenosis. 2. There is antegrade flow in both vertebral arteries. Timothy Cruz MD on February 10, 2017 at 14:56 Board Certified Radiologist. This report was verified electronically.
--- NOTE | 2017-02-10 15:18 | RADRPT ---
EXAM DATE/TIME: 02/10/2017 14:05 [facility] COMPARISON: No previous studies available for comparison. INDICATIONS : Bilateral leg swelling. Preop. MEDICAL HISTORY : [place]. COPD. Hypercholesterol. Hypertension. BPH SURGICAL HISTORY : Appendectomy. ENCOUNTER: Subsequent ACUITY: 1 day PAIN SCORE: 0/10 LOCATION: Bilateral leg. TECHNIQUE: Venous ultrasound of the left and right leg was performed from the inguinal ligament to the proximal calf. Real-time, color Doppler and spectral tracing, compression and augmentation techniques were us ed. FINDINGS: RIGHT LEG: There is normal compressibility of the deep venous system from the inguinal region to the proximal ca lf. No echogenic clot is seen in the lumen of the common femoral, femoral, popliteal, and posterior tibial veins. There is a normal response of the venous system to proximal and distal augmentation an d respiration. LEFT LEG: There is normal compressibility of the deep venous system from the inguinal region to the proximal ca lf. No echogenic clot is seen in the lumen of the common femoral, femoral, popliteal, and posterior tibial veins. There is a normal response of the venous system to proximal and distal augmentation an d respiration. CONCLUSION: No DVT is identified within either lower extremity. Timothy Cruz MD on February 10, 2017 at 15:15 Board Certified Radiologist. This report was verified electronically.
--- NOTE | 2017-02-10 15:41 | RADRPT ---
EXAM DATE/TIME: 02/10/2017 14:22 [facility] COMPARISON: No previous studies available for comparison. INDICATIONS : Preop. Bilateral leg swelling. MEDICAL HISTORY : [place]. COPD. Hypercholesterol. Hypertension. BPH SURGICAL HISTORY : Appendectomy. ENCOUNTER: Initial ACUITY: 1 day PAIN SCORE: 0/10 LOCATION: Bilateral leg. GREATER SAPHENOUS VEIN THIGH: PROXIMAL: Right 6 mm Left 8 mm MID: Right 1 mm Left 2 mm DISTAL: Right 1 mm Left 2 mm CALF: PROXIMAL: Right 2 mm Left 2 mm MID: Right 1 mm Left 2 mm DISTAL: Right 1 mm Left 2 mm FINDINGS: The venous system of the lower extremities are patent by color Doppler imaging. Measurements of the leg veins (in mm) are listed above. CONCLUSION: Venous mapping as above. Donald Barr MD on February 10, 2017 at 15:39 Board Certified Radiologist. This report was verified electronically.
--- NOTE | 2017-02-10 16:13 | RADRPT ---
EXAM DATE/TIME: 02/10/2017 15:58 [facility] COMPARISON: CHEST SINGLE AP, November 17, 2016, 16:42. INDICATIONS : Pre op CABG MEDICAL HISTORY : Hypertension. SURGICAL HISTORY : None. ENCOUNTER: Initial ACUITY: 1 day PAIN SCORE: 0/10 LOCATION: chest FINDINGS: A single view of the chest demonstrates the lungs to be symmetrically aerated without evidence of mas s, infiltrate or effusion. The cardiomediastinal contours are stable. Osseous structures are intact and stable. CONCLUSION: No acute disease. No significant change has occurred. stable Donald Barr MD on February 10, 2017 at 16:11 Board Certified Radiologist. This report was verified electronically.
--- NOTE | 2017-02-10 17:52 | PD.CAR.PN ---
CVT Progress Note Subjective/Hospital Course: pt seen and eval, full consult dictated sts data discussed with pt RISK SCORES About the STS Risk Calculator Procedure: CAB Only Risk of Mortality: 0.995% Morbidity or Mortality: 11.09% Long Length of Stay: 3.665% Short Length of Stay: 53.361% Permanent Stroke: 0.809% Prolonged Ventilation: 6.96% DSW Infection: 0.202% Renal Failure: 1.803% Reoperation: 4.327% Objective: Vital Signs Date Time Temp Pulse Resp B/P Pulse Ox O2 Delivery O2 Flow Rate FiO2 02/10/17 08:31 98.2 59 18 122/74 97 Labs: Laboratory Tests Test 02/10/17 02/10/17 08:23 15:45 White Blood Count 6.1 TH/MM3 (4.0-11.0) Red Blood Count 4.69 MIL/MM3 (4.50-5.90) Hemoglobin 10.7 GM/DL (13.0-17.0) Hematocrit 33.6 % (39.0-51.0) Mean Corpuscular Volume 71.6 FL (80.0-100.0) Mean Corpuscular Hemoglobin 22.9 PG (27.0-34.0) Mean Corpuscular Hemoglobin 31.9 % Concent (32.0-36.0) Red Cell Distribution Width 15.6 % (11.6-17.2) Platelet Count 291 TH/MM3 (150-450) Mean Platelet Volume 7.7 FL (7.0-11.0) Neutrophils (%) (Auto) 60.5 % (16.0-70.0) Lymphocytes (%) (Auto) 32.3 % (9.0-44.0) Monocytes (%) (Auto) 6.5 % (0.0-8.0) Eosinophils (%) (Auto) 0.3 % (0.0-4.0) Basophils (%) (Auto) 0.4 % (0.0-2.0) Neutrophils # (Auto) 3.7 TH/MM3 (1.8-7.7) Lymphocytes # (Auto) 2.0 TH/MM3 (1.0-4.8) Monocytes # (Auto) 0.4 TH/MM3 (0-0.9) Eosinophils # (Auto) 0.0 TH/MM3 (0-0.4) Basophils # (Auto) 0.0 TH/MM3 (0-0.2) CBC Comment DIFF FINAL Differential Comment Prothrombin Time 10.7 SEC (9.8-11.6) Prothromb Time International 1.0 RATIO Ratio Activated Partial 24.6 SEC Thromboplast Time (24.3-30.1) Sodium Level 142 MEQ/L (136-145) Potassium Level 3.9 MEQ/L (3.5-5.1) Chloride Level 108 MEQ/L (98-107) Carbon Dioxide Level 28.4 MEQ/L (21.0-32.0) Anion Gap 6 MEQ/L (5-15) Blood Urea Nitrogen 16 MG/DL (7-18) Creatinine 1.08 MG/DL (0.60-1.30) Estimat Glomerular Filtration 68 ML/MIN (>89) Rate Random Glucose 97 MG/DL (74-106) Calcium Level 8.1 MG/DL (8.5-10.1) Blood Type A POSITIVE Antibody Screen NEGATIVE Blood Bank Comment Result Diagram: 02/10/17 0823 02/10/17 0823 Leydi Ferguson Feb 10, 2017 17:52
--- NOTE | 2017-02-10 18:04 | EKG ---
Date Performed: 02/10/2017 Time Performed: 08:38:22 PTAGE: 71 years EKG: Sinus rhythm with frequent PVCs. Abnormal ECG PREVIOUS TRACING : 11/17/2016 16.07 Compared to prior tracing no significant change DOCTOR: Maggie Hopkins Interpretating Date/Time 02/10/2017 18:03:56
[2017-02-10 18:25] LABS: AST (GOT) 18 U/L (15-37)
[2017-02-10 18:27] LABS: ALKALINE PHOSPHATASE 58 U/L (45-117); ALT (GPT) 19 U/L (12-78); INDIRECT BILIRUBIN 0.2 MG/DL (0.0-0.8); TOTAL BILIRUBIN ADULT 0.3 MG/DL (0.2-1.0)
--- NOTE | 2017-02-10 18:45 | MB ---
cc: KANCHAN FOWLER MD DATE OF CONSULTATION 02/10/17 46 REFERRING PHYSICIAN Patient of Dr. Crow Powell, Dr. Eric Atkins and Dr. Mcintosh HISTORY OF PRESENT ILLNESS A 71-year-old male reported a recent chest discomfort, lightheadedness, occasional episodes of moderate discomfort that started actually a couple of years ago. The pain had lasted minutes, localized to the left side of his body. The moderate lightheadedness began a couple years ago. He had history of some headaches, had been on valproic acid which they did stop. [facility], denied having any shortness of breath. No palpitations. No weight gain or weight loss. Cardiac risk factors include hypertension, smoking, hyperlipidemia. The patient underwent full cardiac workup that included a 2-D echo showing an EF of 60%, grade 1 diastolic dysfunction some mild aortic stenosis, trivial mitral regurgitation, mild MR, trivial pulmonic valve regurgitation. He also underwent Lexiscan which showed partially reversible inferior perfusion defect. No significantly reversible defects to indicate ischemia. He had a Holter monitor that showed some evidence of complex ventricular ectopy, no A, fib or sustained dysrhythmia. He underwent cardiac cath today showing 70% left main, 70% proximal LAD, mid distal LAD 20%, diagonal 20%, circumflex was 10%. The OM was 10%. The RCA 100%. We were consulted to evaluate for coronary artery bypass grafting. PAST MEDICAL HISTORY 1. Some ventricular ectopy 2. Benign prostatic hypertrophy 3. History of some headaches PAST SURGICAL HISTORY No past surgical history. ALLERGIES No known allergies MEDICATIONS Home meds 1. Aspirin 81 daily. 2. Vitamin B12 3. Finasteride 4. Lisinopril five p.o. daily, 5. Mag oxide 6. Omeprazole 7. Simvastatin 8. Temazepam 9. Discontinued apparently Terazosin and Trazodone. FAMILY HISTORY No pertinent cardiovascular family history. SOCIAL HISTORY The patient is , four children. Has smoked a half-a-pack for 40 years. Worked in the [employer] business. No illicit drugs. Occasional beer. REVIEW OF SYSTEMS GENERAL: No night sweats, fever, heat and cold tolerance. SKIN: No psoriasis, itching or hives. HEENT: No blurred vision, hearing loss. RESPIRATORY: No cough, shortness of breath. CARDIOVASCULAR: As above in HPI. GASTROINTESTINAL: No diarrhea, vomiting. GENITOURINARY: No burning, frequency, urgency PERIOPERATIVE ASSISTANT: No history of TIA, CVA, seizure disorder. ENDOCRINE: No history of diabetes or hypothyroidism on PHYSICAL EXAMINATION VITAL SIGNS: Blood pressure 120/70, heart rate 60, temperature max 98.2, respiratory rate of 18. General: Patient is awake, alert in no acute distress. HEENT: Head is normocephalic, atraumatic. Pupils equal and reactive. Oral mucosa pink, moist. NECK: Supple. No JVD. CARDIAC: Heart sounds S1-S2, regular rate and rhythm. No rubs, murmurs, gallops. LUNGS: Clear to auscultation. No wheezes, rales or rhonchi. ABDOMEN: Soft, nontender. No masses or organomegaly. EXTREMITIES: No cyanosis, clubbing or edema. LABORATORY FINDINGS Sodium 142, potassium 3.9, BUN of 16, creatinine 1.08, INR of 1.0. Hemoglobin 10.7, hematocrit 33, white cell count 6.1, platelet count 291, MCV of 71. CARDIOLOGY STUDIES EKG showed sinus rhythm with some PACs. IMPRESSION A 62-year-old male with history of angina who underwent cardiac cath with multivessel disease, normal EF of 60%. Cardiac films have been reviewed by Dr. Kanchan Fowler. PLAN Plan will be for surgery on Tuesday the . Dictated by GEOFF Mendoza MD KARTHIK Arnold/ /5:42 PM /8:35 AM
[2017-02-10 19:00] LABS: BLOOD, URINE NEG (NEG); COMMENT (UR) CULT NOT INDICATED; CULTURE IF INDICATED CULT NOT INDICATED; GLUCOSE,URINE NEG (NEG); KETONE, URINE NEG (NEG); NITRITE,URINE NEG (NEG); PH, URINE 6.5 (5.0-8.5); URINE COLOR YELLOW (YELLW/STRAW)
[2017-02-10 19:51] LABS: HEMOGLOBIN A1a 2.2 %; HEMOGLOBIN A1b 0.8 %; HEMOGLOBIN Ao 83.5 %; HEMOGLOBIN F 1.1 %; HEMOGLOBIN LA1C 2.1 %; HEMOGLOBIN P3 5.6 %
[2017-02-10] MEDS ORDERED: SODIUM CHLORIDE 0.9% FLUSH 10 ML FLUSH IV FLUSH SCH (21:00)
--- NOTE | 2017-02-10 22:49 | MA ---
cc: ERIC WALKER DO DATE OF PROCEDURE February 10, 2017 PROCEDURE Left heart catheterization, coronary angiogram, IVUS left main, moderate sedation 40 minutes. PREPROCEDURE DIAGNOSIS Chest pain on antianginal medications, questionable inferior ischemia infarct on stress test. POSTPROCEDURE DIAGNOSIS Multivessel coronary artery disease with CT of the RCA and left main disease (IVUS 4.3 mm squared). MEDICATIONS 1. Verapamil 2.5 milligrams. 2. Nitro 200 micrograms. 3. Heparin 7600 units. 4. Versed 0.5 milligrams. 5. Fentanyl 25 micrograms. CONTRAST USED 50 cc. FLUOROSCOPY 10.7 minutes. SEDATION Moderate sedation 40 minutes. ESTIMATED BLOOD LOSS 10 cc. PROCEDURAL SUMMARY Dakota Nieves is a pleasant 71-year-old male who has been having chest pain and dizziness while on antianginal medications. He underwent pharmacologic nuclear stress testing and there was question on possible infarct/ischemia in the inferior portion. Because he continued to have pain on antianginals he was recommended cardiac catheterization. Risks, benefits and alternatives were explained to him and he consented as such. He was brought to the lab and prepped in the usual sterile fashion. Right radial artery was accessed using a modified Seldinger technique and placement of a 5/6 Irish slender sheath. This was easily aspirated and flushed. The JR-4 was advanced over a J-wire to the ascending aorta and across the aortic valve into the left ventricle. This was pulled back across the aortic valve showing no significant gradient of aortic stenosis. JR-4 was used for selective angiography of the right coronary artery. This was exchanged for a JL-3.5 which was used for selective angiography of the left coronary artery. There was concern for the distal left main as well as the ostial LAD and so it was felt that this needed to be further investigated. The patient was given heparin as an additional anticoagulant. An EBU 3.5 guide was then engaged into the left main. The BMW wire was advanced down the LAD. An IVUS catheter was then placed in the proximal LAD and pulled back while recording. Review of the images shows that the distal left main measures 4.3 mm squared consistent with significant left main disease. IVUS catheter was then removed. BMW wire was removed. Final shots shows no disruption of the coronary arteries. EBU guide was then removed. A radial band was placed over the arteriotomy site for hemostasis. The patient left the [employer] cardiovascularly stable. FINDINGS Left main, distal portion with 70% stenosis (IVUS area 4.3 mm squared). It bifurcates into an LAD and circumflex. LAD: Ostial disease of 80%. Otherwise the distal portion has diffuse 20-30% but no other significant disease. It gives off one major diagonal with no significant disease. Left circumflex: Moderate size vessel with 50% disease in the ostial portion. Otherwise, no significant disease. It gives off two large obtuse marginals with no significant disease. Right coronary artery: 100% occluded RAIL LAYER over a long portion of the mid region of the vessel. There is significant [id number] collaterals which applied blood flow to the distal PDA. Left ventricular end-diastolic pressure 4. IMPRESSION 1. Chest pain on multiple antianginals. 2. Multivessel coronary artery disease with a RAIL LAYER of the RCA with [id number] collaterals, significant stenosis of the left main artery (IVUS area 4.3 mm squared). RECOMMENDATIONS 1. As Mr. Nieves presented with chest pain on multi antianginals and was found to have multivessel disease the recommendation is that he undergo coronary artery bypass grafting. 2. I have consulted Dr. Fowler and discussed the case with him who will see him today. 3. Most likely he can be discharged home with the recommendation that he has no strenuous activity until his surgery date. 4. He was instructed that if any of his symptoms change or he starts to have chest pain that he present back to the emergency room immediately. 5. Post coronary artery bypass grafting he will follow up with Dr. Mcintosh. Thank you for allowing me to see Dakota Nieves. If there are any questions please do not hesitate to call. Eric Walker DO VGP/EO /9:46 PM /10:32 PM
--- NOTE | 2017-02-15 09:54 | RSPPFT ---
DATE OF PROCEDURE: 02/10/17 COMMENTS: VOLUMES DYNAMIC: FVC and FEV1 normal. FLOWS: FEV1% and FEF 25-75 normal. IMPRESSION: Normal simple spirometry.
== END 2017-02-10 17:44 | disposition home or self-care (01) ==
LOC: HDOC 07:52 → HDIC 07:53 → HDOC 17:44
PROVIDERS: ATTEND Nuclear Medicine Nuclear Cardiology
DX: I25.10 Atherosclerotic heart disease of native coronary artery without angina pectoris (principal); R94.39 Abnormal result of other cardiovascular function study; I49.3 Ventricular premature depolarization; I10 Essential (primary) hypertension; M79.89 Other specified soft tissue disorders; J44.9 Chronic obstructive pulmonary disease, unspecified; Z95.1 Presence of aortocoronary bypass graft; N40.0 Benign prostatic hyperplasia without lower urinary tract symptoms
CPT/HCPCS: 71010; 80048; 80076; 81001; 83036; 85025; 85610; 85730; 86850; 86900; 86901; 87641; 92978; 93005; 93454; 93880; 93970; 93998; 94010; C1753; C1769; C1887; C1893; J1644; J2250; J3010; Q9967

== ENCOUNTER 2017-02-15 15:19 | Inpatient (IN) | payer OTHER, MEDICARE ==
[~2017-02-15] VITALS: Ht 160 cm; Wt 67.5 kg
[~2017-02-15 15:19] MED LIST changes: +ASPI81TA11 PO; -ASPI81TA82 PO; +FINA5TAB2 PO; -FINA5TAB77 PO; -LISI-363 PO; +LISI-519 PO; -MAGN400C2 PO; +MAGN400T2 PO; +OMEP20TA PO; -OMEP20TA39 PO; -REST7.5C PO; +SIMV80TA PO; +TEMA7.5C PO; -TRAZ100 PO; +TRAZ100T6 PO; -VALP250 PO; -VENL-39 PO; +VITA250L PO; -VITA500T49 PO; -ZOCO80TA PO
[2017-02-24] VITALS (10 sets, daily range): BP systolic 111–167; BP diastolic 41–79; PULSE 56–94; RESP 16–20; TEMP 97.4–98.6; O2SAT 96–99
[2017-02-24] MEDS ORDERED: ARTIFICIAL TEARS OPTH OINT 3.5 APPLIC/3.5 GM TUBO ONE (05:00)
[2017-02-24] MEDS ORDERED: VECURONIUM BROMIDE 10 MG VIAL IV ONE (05:00)
[2017-02-24] MEDS ORDERED: NITROGLYCERIN-DEXTROSE INJ 250 ML IV ONE (05:00)
[2017-02-24] MEDS ORDERED: MAGNESIUM SULFATE 1000 MG/2 ML VIAL (PED) IV ONE (05:00)
[2017-02-24] MEDS ORDERED: PHENYLEPHRINE HCL 10 MG/ML VIAL IV ONE (05:00)
[2017-02-24] MEDS ORDERED: AMINOCAPROIC ACID INJ 250 MG/ML 20 ML VIAL IV ONE (05:00)
[2017-02-24] MEDS ORDERED: GLYCOPYRROLATE 0.2 MG/ML VIAL IV ONE (05:00)
[2017-02-24] MEDS ORDERED: SODIUM BICARBONATE 8.4% INJ 50 MEQ/50 ML SYR IV ONE (05:00)
[2017-02-24] MEDS ORDERED: CALCIUM CHLORIDE 10% SOLN 1 GRAM/10 ML SYR IV ONE (05:00)
[2017-02-24] MEDS ORDERED: FUROSEMIDE 100 MG/10 ML VIAL IV PUSH ONE (05:00)
[2017-02-24] MEDS ORDERED: ceFAZolin 2 GM PREMIX 50 ML IV SCH (06:00)
[2017-02-24] MEDS ORDERED: SODIUM CHLORID 0.9% 500 ML IV PRN (06:00)
[2017-02-24] MEDS ORDERED: CEFAZOLIN 500 MG in NS IRR BTL 500 ML IRRIGATION SCH (06:00)
[2017-02-24] MEDS ORDERED: INSULIN REGULAR 100 UNITS in NS 100 ML IV SCH (06:00)
[2017-02-24] MEDS ORDERED: METOPROLOL TARTRATE 25 MG TAB PO SCH (06:00)
[2017-02-24] MEDS ORDERED: CHLORHEXIDINE GLUCONATE 2 % 1 PACK (2 CLOTHS) TOPICAL PRN (06:00)
[2017-02-24] MEDS ORDERED: METOPROLOL TARTRATE 25 MG TAB PO PRN (06:00)
[2017-02-24] MEDS ORDERED: INSULIN HUMAN REGULAR 1,000 UNITS/10 ML VIAL SQ PRN (06:00)
[2017-02-24] MEDS ORDERED: CHLORHEXIDINE GLUCONATE 4% SOLN 120 ML BTL TOPICAL SCH (06:00)
[2017-02-24] MEDS ORDERED: LACTATED RINGER'S 1000 ML IV PRN (06:00)
[2017-02-24] MEDS ORDERED: PAPAVERINE 60 MG-NITROGLYCERIN 100 MCG-DILTIAZEM 100 MG in NS 100 ML IRRIGATION SCH ×4 (06:00)
[2017-02-24] MEDS ORDERED: POVIDONE IODINE 5% (ANTISEPSIS KIT) 4 APPLICATIONS EACH NARE PRN (06:00)
[2017-02-24] MEDS ORDERED: SODIUM CHLORIDE 0.9% FLUSH 10 ML FLUSH IV FLUSH PRN ×3 (06:00→10:30)
[2017-02-24] MEDS ORDERED: methylPREDNISolone SOD SUCC 125 MG/2 ML VIAL ONE (06:27)
[2017-02-24] MEDS ORDERED: HEPARIN SODIUM - SQ 10,000 UNITS/ML VIAL ONE (06:27)
[2017-02-24] MEDS ORDERED: ceFAZolin 2 GM PREMIX 50 ML ONE (06:27)
[2017-02-24] MEDS ORDERED: VANCOMYCIN HCL 1000 MG VIAL ONE (06:27)
[2017-02-24] MEDS ORDERED: CHLORHEXIDINE GLUCONATE 2 % 1 PACK (2 CLOTHS) TOPICAL ONE (07:05)
[2017-02-24] MEDS ORDERED: CARDIOPLEGIC IRR 1,000 ML ONE (07:19)
[2017-02-24] MEDS ORDERED: ALBUMIN HUMAN 25% 12.5 GM/50 ML BAGP IV ONE (07:20)
[2017-02-24] MEDS ORDERED: POTASSIUM CHLORIDE 40 MEQ/20 ML VIAL ONE (07:20)
[2017-02-24] MEDS ORDERED: MANNITOL INJ 50 ML ONE (07:20)
[2017-02-24] MEDS ORDERED: HEPARIN SODIUM - IV 10,000 UNITS/10 ML VIAL ONE (07:21)
[2017-02-24] MEDS ORDERED: METO25TA3 PO (09:39)
[2017-02-24] MEDS ORDERED: LACTATED RINGER'S 1000 ML INJ 500 ML IV PRN (10:28)
[2017-02-24] MEDS ORDERED: MAGNESIUM SULFATE INJ 2 GM in SODIUM CHLORIDE 0.9% INJ 100 ML IV PRN ×4 (10:30)
[2017-02-24] MEDS ORDERED: ACETAMINOPHEN 325 MG TAB PO PRN (10:30)
[2017-02-24] MEDS ORDERED: DEXTROSE 50% IN WATER 50 ML VIAL(D50) IV PUSH PRN (10:30)
[2017-02-24] MEDS ORDERED: ONDANSETRON HCL 4 MG/2 ML VIAL IV PUSH PRN (10:30)
[2017-02-24] MEDS ORDERED: RESP: ALBUTEROL 2.5 MG/IPRATROPIUM 0.5 MG NEB (PRN) NEB (10:30)
[2017-02-24] MEDS ORDERED: CALCIUM CHLORIDE 10% 1 GRAM/10 ML VIAL IV PRN (10:30)
[2017-02-24] MEDS ORDERED: POTASSIUM CHLORIDE 20 MEQ CONTROLLED RELEASE TAB PO PRN ×2 (10:30)
[2017-02-24] MEDS ORDERED: Post-op Orders (for Pharmacy) MISC OTHER ONE (10:30)
[2017-02-24] MEDS ORDERED: ACETAMINOPHEN 650 MG SUPP RECTAL PRN (10:30)
[2017-02-24] MEDS ORDERED: POTASSIUM CHLOR 20 MEQ PREMIX 100 ML IV PRN ×3 (10:30)
[2017-02-24] MEDS ORDERED: RESP: RACEPINEPHRINE 2.25% 0.5 ML NEB NEB PRN (10:30)
[2017-02-24] MEDS ORDERED: METOPROLOL TARTRATE 5 MG/5 ML VIAL IV PUSH PRN (10:30)
[2017-02-24] MEDS ORDERED: hydrALAZINE HCL 20 MG/ML VIAL IV PRN (10:30)
--- NOTE | 2017-02-24 10:41 | PD.OP ---
cc: Kanchan Fowler MD; Eric Atkins DO Operative Report Date of Surgery: Feb 24, 2017 Preoperative Diagnosis: (1) Atypical chest pain (2) CAD (coronary artery disease) Postoperative Diagnosis: same Procedure: CABG x 3 PEREZ to LAD SVG to OM SVG to PDA EVH Anesthesia: Dr. Zuniga Surgeon: Kanchan Fowler Production Line Solderer(s): YAKELIN Burdick Operation and Findings: The risks, benefits, complications, treatment options, and expected outcomes were discussed with the patient. The possibilities of reaction to medication, pulmonary aspiration, perforation of viscus, bleeding, recurrent infection, the need for additional procedures, failure to diagnose a condition, and creating a complication requiring transfusion or operation were discussed with the patient. The patient concurred with the proposed plan, giving informed consent. The site of surgery properly noted/marked. The patient was taken to Operating Room, identified as Dakota Nieves and the procedure verified as CABG, EVH. A Time Out was held and the above information confirmed. Standard monitoring lines and Mclaughlin catheter were placed. General anesthesia was induced. The patient was prepped and draped in a sterile fashion. A median sternotomy was performed and electrocautery was used to obtain hemostasis. The left internal mammary artery was procured as a pedicle from the 7th rib to the 1st rib in the usual manner. Simultaneously left greater saphenous vein was procured from the left leg using a minimally invasive endoscopic technique. The vein was prepared for anastomosis and the leg wound was irrigated and closed in 2 layers. The pericardium was opened and a pericardial sling was created using interrupted 0 silk sutures. The patient was heparinized for cardiopulmonary bypass and the distal mammary pedicle was instrumented for anastomosis. The heart was instrumented for cardiopulmonary bypass in the usual manner. Antegrade blood cardioplegia was employed. The patient was placed on cardiopulmonary bypass. An aortic cross-clamp was applied and the heart was arrested using cold blood cardioplegia. Antegrade cardioplegia was administered after he each anastomosis. After adequate arrest, the distal right coronary circulation was investigated and the PDA was opened with a [place] blade and found to be a 1.5 millimeter good target. Saphenous vein was approximated to the PDA artery using a running 7 0 Prolene suture. The graft was measured for length and orientation and the proximal anastomosis was constructed to the ascending aorta using a running 5 0 Prolene suture after creating an aortotomy with a 5 millimeter punch. The 1st circumflex marginal artery was then opened with a [place] blade and found to be a 1.5 millimeter good target. Saphenous vein was approximated to the OM1 artery using a running 7 0 Prolene suture. The graft was measured for length and orientation and was suspended from the pericardium. The distal LAD was opened with a [place] blade and found to be a 1.5 millimeter good target. The left internal mammary artery was approximated to the LAD using a running 7 0 Prolene suture. The pedicle was attached to the epicardium using interrupted 5 0 silk suture. The patient was systemically rewarmed and received a hotshot dose of warm blood cardioplegia. The aorta was vented and the proximal anastomosis to the OM1 graft was accomplished using a running 5 0 Prolene suture after creating an aortotomy was a 5 millimeter punch. The cross-clamp was removed and all proximal and distal anastomoses were examined for hemostasis. The patient was weaned from cardiopulmonary bypass. Protamine was given. There was no adverse reaction. Decannulation was carried out without incident. Wound was checked for hemostasis which was obtained using electrocautery. A 36 Bangl[place] mediastinal and 32 [place]hi left pleural chest was were placed and secured to the skin with 0 silk suture. The sternum was closed with stainless steel wire. The fascia was closed with 1. PDS. The subcutaneous tissue was closed using a running 2-0 Vicryl suture. The skin was closed with 4- 0 Monocryl. Sterile dressings were placed. At the end of the operation, all sponge, instruments, and needle counts were correct. The patient was transferred to the CVICU in stable condition. Findings: Good distal targets XC: 51 min CPB: 59 min Drains: mediastinal x 1 pleural x 1 Complications: none Disposition: to CVICU in stable condition Kanchan Fowler MD Feb 24, 2017 10:41
[2017-02-24] MEDS ORDERED: INSULIN REGULAR (IV INFUSION) 100 UNITS in SODIUM CHLORIDE 0.9% INJ 99 ML IV SCH (11:00)
[2017-02-24] MEDS ORDERED: PILL SPLITTER OTHER PRN (11:15)
[2017-02-24] MEDS ORDERED: MIDAZOLAM HCL 5 MG/5 ML VIAL ONE ×2 (11:24)
[2017-02-24] MEDS ORDERED: fentaNYL CITRATE 1000 MCG/20 ML VIAL ONE (11:24)
--- NOTE | 2017-02-24 11:55 | RADRPT ---
EXAM DATE/TIME: 02/24/2017 11:16 [facility] COMPARISON: CHEST SINGLE AP, February 10, 2017, 15:58. INDICATIONS : Post CABG. MEDICAL HISTORY : Cardiovascular disease. Hypertension SURGICAL HISTORY : CABG. ENCOUNTER: Initial ACUITY: 1 day PAIN SCORE: Non-responsive. LOCATION: Bilateral chest FINDINGS: A single view of the chest demonstrates the endotracheal, nasogastric, left chest tube, right IJ cent ral line and numerous sternal wires are in excellent position. There is no visible pneumothorax.. Th e cardiomediastinal contours are unremarkable. Osseous structures are intact. CONCLUSION: Tubes and catheters are in good position. The proximal port of the NG tube is at the level of the gas troesophageal junction. Sternal wires are intact. No visible pneumothorax. Lalo Kimble MD on February 24, 2017 at 11:53 Board Certified Radiologist. This report was verified electronically.
[2017-02-24] MEDS: ACETAMINOPHEN 1000 MG/100 ML VIAL IV SCH ×3 (12:00→22:36)
[2017-02-24] MEDS: CALCIUM CHLORIDE INJ 1 GM in SODIUM CHLORIDE 0.9% INJ 100 ML IV PRN ×2 (12:02→20:39)
[2017-02-24] MEDS: CLEVIDIPINE INJ 50 ML IV SCH ×2 (13:21→23:26)
[2017-02-24] MEDS ORDERED: PROTAMINE SULFATE 250 MG/25 ML VIAL IV ONE (14:27)
[2017-02-24] MEDS: traZODone HCL 100 MG TAB PO SCH (20:25)
[2017-02-24] MEDS: AMIODARONE 200 MG TAB PO SCH (20:25)
[2017-02-24] MEDS: ATORVASTATIN 40 MG TAB PO SCH (20:25)
[2017-02-24] MEDS: SODIUM CHLORIDE 0.9% FLUSH 10 ML FLUSH IV FLUSH SCH (20:25)
[2017-02-24] MEDS: ASPIRIN EC 81 MG TABEC PO SCH (20:25)
[2017-02-24] MEDS ORDERED: NON-FORMULARY DRUG (Simvastatin 80 MG) PO SCH (21:00)
[2017-02-24] MEDS: TEMAZEPAM 7.5 MG CAP PO PRN (22:40)
[2017-02-25] VITALS (20 sets, daily range): BP systolic 133–156; BP diastolic 55–92; PULSE 77–99; RESP 16–20; TEMP 98.3–100.1; O2SAT 93–100
[2017-02-25] MEDS: oxyCODONE/ACETAMINOPHEN 5 MG/325 MG TAB PO PRN ×5 (03:14→23:04)
[2017-02-25] MEDS: ACETAMINOPHEN 1000 MG/100 ML VIAL IV SCH (05:02)
[2017-02-25] MEDS: PANTOPRAZOLE SOD 40 MG DELAYED RELEASE TAB PO SCH (05:02)
[2017-02-25 05:15] LABS: HEMATOCRIT 32.9 % (39.0-51.0); MEAN CELL VOLUME 71.7 FL (80.0-100.0); MEAN CORPUSCULAR HGB CONC 32.1 % (32.0-36.0); PLATELET COUNT 267 TH/MM3 (150-450); RED BLOOD COUNT 4.59 MIL/MM3 (4.50-5.90); RED CELL DISTRIBUTION WIDTH 15.6 % (11.6-17.2); REVIEW FLAG FINAL; WHITE BLOOD COUNT 10.5 TH/MM3 (4.0-11.0)
[2017-02-25 05:45] LABS: BICARBONATE 27.3 MEQ/L (21.0-32.0); MAGNESIUM 2.5 MG/DL (1.5-2.5); POTASSIUM 4.2 MEQ/L (3.5-5.1)
--- NOTE | 2017-02-25 06:20 | RADRPT ---
EXAM DATE/TIME: 02/25/2017 04:29 [facility] COMPARISON: CHEST SINGLE AP, February 24, 2017, 11:16. INDICATIONS : Post CABG MEDICAL HISTORY : Cardiovascular disease. Hypertension SURGICAL HISTORY : CABG. ENCOUNTER: Subsequent ACUITY: 2 days PAIN SCORE: 8/10 LOCATION: Bilateral chest FINDINGS: The cardiac silhouette is enlarged in transverse diameter. Support lines and tubes are in satisfactor y position. There is no evidence of pneumothorax. There is left lower lobe atelectasis versus pneumo mariana. This is new when compared with the prior exam. The right lung is free of acute parenchymal opaci ty. CONCLUSION: 1. New left lower lobe atelectasis versus pneumonia. Dandy Cali MD on February 25, 2017 at 6:18 Board Certified Radiologist. This report was verified electronically.
[2017-02-25] MEDS: CLEVIDIPINE INJ 50 ML IV SCH (07:58)
--- NOTE | 2017-02-25 08:45 | EKG ---
Date Performed: 02/25/2017 Time Performed: 04:59:40 PTAGE: 71 years EKG: Sinus rhythm with frequent PVCs Rightward axis Extensive ST-T changes are nonspecific Abnormal ECG PREVIOUS TRACING : 02/10/2017 08.38 Compared to prior tracing no significant change DOCTOR: Bogdan Zavala Interpretating Date/Time 02/25/2017 08:43:17
[2017-02-25] MEDS ORDERED: NON-FORMULARY DRUG (Omeprazole 20 MG) PO SCH (09:00)
[2017-02-25] MEDS: CYANOCOBALAMIN 100 MCG TAB PO SCH (09:12)
[2017-02-25] MEDS: FINASTERIDE 5 MG TAB PO SCH (09:12)
[2017-02-25] MEDS: MAGNESIUM OXIDE 400 MG TAB PO SCH (09:12)
[2017-02-25] MEDS: SODIUM CHLORIDE 0.9% FLUSH 10 ML FLUSH IV FLUSH SCH ×2 (09:12→20:24)
[2017-02-25] MEDS: AMIODARONE 200 MG TAB PO SCH ×2 (09:13→20:22)
[2017-02-25] MEDS ORDERED: SOD PHOSPHATE/SOD BIPHOSPHATE (ADULT) ENEMA 133ML RECTAL PRN (10:00)
[2017-02-25] MEDS: INSULIN ASPART SUPPLEMENTAL SCALE SQ SCH ×4 (10:00→22:00)
[2017-02-25] MEDS ORDERED: BISACODYL 10 MG SUPP RECTAL PRN (10:00)
[2017-02-25] MEDS ORDERED: GLUCAGON 1 MG/ML VIAL OTHER PRN (10:00)
[2017-02-25] MEDS ORDERED: DEXTROSE 50% IN WATER 50 ML VIAL(D50) IV PRN (10:00)
[2017-02-25] MEDS ORDERED: KETOROLAC TROMETHAMINE 30 MG/ML (IVP) VIAL IV PUSH PRN (10:00)
[2017-02-25] MEDS: DOCUSATE SODIUM 100 MG CAP PO SCH ×2 (10:00→20:22)
[2017-02-25] MEDS: POLYETHYLENE GLYCOL 17 GM PKG PO SCH (10:00)
[2017-02-25] MEDS: MAGNESIUM HYDROXIDE SUSP 30 ML CUP PO SCH (10:10)
[2017-02-25] MEDS: METOPROLOL TARTRATE 25 MG TAB PO SCH ×2 (10:10→20:22)
[2017-02-25] MEDS: METOCLOPRAMIDE HCL 10 MG/2 ML VIAL IV SCH ×3 (14:04→23:04)
--- NOTE | 2017-02-25 16:00 | PD.CAR.PN ---
CVT Progress Note CVT: POD #: 1 Subjective/Hospital Course: 71/ male, c/o chest pain , lightheadedness , hx of CAD prior cath . 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 EYES: No scleral icterus. No injection or drainage. NECK: Supple, trachea midline. No JVD or lymphadenopathy. CARDIOVASCULAR: Regular rate and rhythm without murmurs, gallops, or rubs. mild edema RESPIRATORY: Breath sounds equal bilaterally. No accessory muscle use. diminished left lower lobe, few crackles / chest tube to wall suction drained 170cc/ 12 hrs GASTROINTESTINAL: Abdomen soft, non-tender, nondistended. MUSCULOSKELETAL: No cyanosis, or edema. BACK: Nontender without obvious deformity. No CVA tenderness. Vital Signs Date Time Temp Pulse Resp B/P Pulse Ox O2 Delivery O2 Flow Rate FiO2 02/25/17 15:22 96 Nasal Cannula 2.00 02/25/17 15:00 99.2 78 20 142/80 96 Arterial Line 02/25/17 14:00 77 02/25/17 12:00 78 02/25/17 11:00 99.0 89 18 134/82 96 133/68 02/25/17 11:00 94 Nasal Cannula 2.00 02/25/17 10:23 18 02/25/17 10:00 98 02/25/17 09:32 95 Nasal Cannula 2.00 02/25/17 08:06 97 Nasal Cannula 2.00 02/25/17 08:00 97 02/25/17 07:00 100.1 96 20 147/75 94 138/55 02/25/17 07:00 94 Nasal Cannula 2.00 02/25/17 06:00 99 02/25/17 04:00 100.1 89 18 156/63 96 02/25/17 04:00 89 02/25/17 04:00 96 Nasal Cannula 2.00 02/25/17 02:00 90 02/25/17 00:00 99 Nasal Cannula 2.00 02/25/17 00:00 93 02/25/17 00:00 99.6 93 16 143/55 99 02/24/17 22:00 94 02/24/17 20:00 99 Nasal Cannula 2.00 02/24/17 20:00 88 02/24/17 20:00 98.4 88 16 146/64 99 Labs: Laboratory Tests Test 02/25/17 04:30 White Blood Count 10.5 TH/MM3 (4.0-11.0) Red Blood Count 4.59 MIL/MM3 (4.50-5.90) Hemoglobin 10.6 GM/DL (13.0-17.0) Hematocrit 32.9 % (39.0-51.0) Mean Corpuscular Volume 71.7 FL (80.0-100.0) Mean Corpuscular Hemoglobin 23.0 PG (27.0-34.0) Mean Corpuscular Hemoglobin 32.1 % Concent (32.0-36.0) Red Cell Distribution Width 15.6 % (11.6-17.2) Platelet Count 267 TH/MM3 (150-450) Mean Platelet Volume 8.1 FL (7.0-11.0) Sodium Level 138 MEQ/L (136-145) Potassium Level 4.2 MEQ/L (3.5-5.1) Chloride Level 104 MEQ/L (98-107) Carbon Dioxide Level 27.3 MEQ/L (21.0-32.0) Anion Gap 7 MEQ/L (5-15) Blood Urea Nitrogen 13 MG/DL (7-18) Creatinine 0.98 MG/DL (0.60-1.30) Estimat Glomerular Filtration 76 ML/MIN (>89) Rate Random Glucose 101 MG/DL (74-106) Calcium Level 8.4 MG/DL (8.5-10.1) Magnesium Level 2.5 MG/DL (1.5-2.5) Result Diagram: 02/25/17 0430 02/25/17 0430 Telemetry: NSR (1) S/P CABG x 3 Plan: ASA, statin , BB, amiodarone OOB ambulate leave chest tube in pulm toileting hernesto wing CM eval for HHC gentle diuresis (2) CAD (coronary artery disease) (3) Bigeminy (4) Tobacco dependency Plan: smoking cessation (5) Hyperlipemia Plan: on statin (6) Atelectasis Plan: aggressive pulm toileting Leydi Ferguson Feb 25, 2017 16:00
--- NOTE | 2017-02-25 16:05 | HHI.FF ---
Face to Face Verification Diagnosis: (1) CAD (coronary artery disease) (2) Atypical chest pain (3) Hyperlipemia (4) Tobacco dependency (5) S/P CABG x 3 Home Health Nursing Order: Signs/symptoms of disease process Medication education-adverse effect Wound care and dressing changes Nursing assessment with vital signs Instructions: Heart and Vascular Surgery patients *Special attention to sternal dressing Mandatory frequency Assess and evaluation, 4 days in a row The next week 3X week 2 times a week for 4 weeks 1 time a week for 5 weeks Schedule Heart and Vascular patients for full 60 day certification period Initial visit Review Open Heart Surgery Discharge Instructions (Sternal precautions, Activity, Elastic hose, Incision care, Driving, Incentive spirometry, Smoking, Dozier, Work and other) Need Betadine to paint incision Medication reconciliation Importance of follow up care/ check on appointments Make calendar record temperature daily When to call [facility] nurse, review instructions, phone list Incentive Spirometry, demonstration Visit 1- Begin discharge instruction for patient family and/ or caregiver using teach back method- Signs and symptoms of infection Disease characteristics Medicines and side effects Foods and nutrition/ appetite Infection control/ hand washing/ hygiene Visit 2- Continue teaching Discharge instructions- include additional information on smoking cessation , sternal dressing (sternal vac) Visit 3- Continue teaching- Cough and deep breathing, incision monitoring. Choose my plate Visit 4- Continue teaching- Discuss limitations Discuss how they are feeling Discuss progress toward goals Remaining visits- continue teaching and monitoring PREVENA Single Use Negative Wound Therapy System Caregiver Instruction Sheet 1. A Prevena dressing system was applied to the chest incision during surgery , to promote wound healing. It works via a suction device (negative pressure wound therapy) to remove low to moderate levels of exudate (drainage) and infectious materials. We recommend that the device stay in place for up to seven days, from day of surgery. 2. Day of Surgery___7/ Day of Removal ____/ 3. The dressing should only be removed by a health rn progressive care unit. Please arrange removal of device to coincide with Home Health visit and or with Nursing staff at Rehab 4. If skin reddening or irritation of skin occurs, or excessive drainage, please notify the Cardiovascular Surgeons office at [phone]. 5. Light showering is permissible; however the pump should be disconnected and placed in safe location, where it will not get wet. The dressing should not be exposed to direct spray or submerged in water. No bath tub / shower only. Ensure the end of the tubing attached to the dressing is facing down so that water does not enter the top of the tube. 6. To remove Prevena dressing: press purple button to turn off device / remove the suction. Then disconnect the tubing from the pump. The fixation strips should be stretched away from the skin and the dressing lifted at one corner and peeled back until it has been fully removed. 7. After removal, it is ok to shower daily using liquid dial soap and clean wash cloth, rinse and pat dry, and leave incision open to air dry. For any concerns regarding Prevena dressing, and or wounds, please contact Alaina Felton, patient navigator at [phone] or notify the Cardiovascular Surgeons office at [phone]. Incentive spirometry Q1 hr x 10, while awake, also use acapella device hourly whole awake Sternal Breast Bone Precautions: NO pushing or pulling, ( pt must use sternal pillow to support chest with all activities and with coughing ( takes up to 3 months breast bone to heal ) Daily incision care: ok to shower daily, no tub bath. Wash all incisions with liquid dial soap, clean wash cloth to each site, rinse and pat dry. Observe for any signs of infection, such as drainage which is dark yellow, fried, green or foul smelling. Immediately report to the surgeon any drainage from the chest incision, or legs, and for any abnormal drainage from the chest tube sites. Notify surgeon if any temp >101.5 degrees F. When specialty dressing removed/ or if you do not have one, continue to shower daily as above, then rinse and pat incision dry and paint with betadine daily x 5 days. Allow steri strips to fall off if you have any. Avoid lotions, creams, salves, oils, etc. for the first month Please see attached forms for additional instructions regarding post Open Heart specialty wound vacuum dressings. ESTEFANY or Prevena , Dressing to be removed by Nursing staff on ___03/03/17____ For Dr. Fowler patients , please obtain CBC, BMP, PA & Lat CXR in 2 weeks, results to Dr. Fowler ( prescription will be given) ( ) (Tele: [phone]) , F/U appointment: as per [facility] instructions: PCP in 2 weeks, CV surgeon 2 weeks, Industrial [employer] Service Helper 3-4 weeks For any questions regarding incisions/ dressing / meds / post op care or above Symptoms, Tuesday 8am-5pm Heart & Vascular Surgery Office ( Dr. Montenegro & Dr. Fowler), After Hours / Nights (5pm -8am) Weekends and Holidays Please call [facility] Card[facility] Unit ([facility]) Charge Nurse I have seen patient Dakota Nieves on 02/25/17. My clinical findings support the need for the requested home health care services because: Deconditioned w/ increased weakness I certify that my clinical findings support that this patient is homebound because: Post-op weakness Leydi Ferguson Feb 25, 2017 16:05
[2017-02-25] MEDS: RESP: ALBUTEROL 2.5 MG/IPRATROPIUM 0.5 MG NEB (SCH) NEB (16:17)
[2017-02-25] MEDS ORDERED: POTASSIUM CHLORIDE 20 MEQ CONTROLLED RELEASE TAB PO ONE (16:30)
[2017-02-25] MEDS ORDERED: FUROSEMIDE 40 MG/4 ML VIAL IV PUSH ONE (16:30)
[2017-02-25 16:44] LABS: BLOOD, URINE TRACE (NEG); GLUCOSE,URINE NEG (NEG); HYALINE CAST, URINE 11 /lpf (RARE); KETONE, URINE TRACE mg/dL (NEG); MUCUS URINE FEW /lpf (OCC); NITRITE,URINE NEG (NEG); PH, URINE 5.5 (5.0-8.5); URINE COLOR YELLOW (YELLW/STRAW)
[2017-02-25 16:53] LABS: COMMENT (UR) CATH-CULT NOT IND; CULTURE IF INDICATED CATH CULTURE NOT IND
[2017-02-25] MEDS: ATORVASTATIN 40 MG TAB PO SCH (20:22)
[2017-02-25] MEDS: ASPIRIN EC 81 MG TABEC PO SCH (20:22)
[2017-02-25] MEDS: traZODone HCL 100 MG TAB PO SCH (20:22)
[2017-02-25] MEDS: SENNOSIDES 8.6 MG TAB PO SCH (20:22)
[2017-02-25] MEDS: TEMAZEPAM 7.5 MG CAP PO PRN (23:04)
[2017-02-26] VITALS (27 sets, daily range): BP systolic 130–156; BP diastolic 79–98; PULSE 75–110; RESP 14–20; TEMP 98.4–99.7; O2SAT 93–98
[2017-02-26] MEDS: INSULIN ASPART SUPPLEMENTAL SCALE SQ SCH ×2 (02:00→06:00)
[2017-02-26] MEDS: oxyCODONE/ACETAMINOPHEN 5 MG/325 MG TAB PO PRN ×3 (04:52→20:42)
[2017-02-26] MEDS: METOCLOPRAMIDE HCL 10 MG/2 ML VIAL IV SCH (05:03)
[2017-02-26] MEDS: PANTOPRAZOLE SOD 40 MG DELAYED RELEASE TAB PO SCH (05:03)
[2017-02-26 06:07] LABS: AUTOMATED NEUTROPHIL # 8.2 TH/MM3 (1.8-7.7); BASOPHIL % 0.4 % (0.0-2.0); EOSINOPHIL % 0.2 % (0.0-4.0); HEMATOCRIT 31.2 % (39.0-51.0); HEMO FLAGS DIFF FINAL; LYMPH % 15.3 % (9.0-44.0); LYMPHOCYTE # 1.7 TH/MM3 (1.0-4.8); MEAN CELL VOLUME 72.6 FL (80.0-100.0); MEAN CORPUSCULAR HEMOGLOBIN 22.9 PG (27.0-34.0); MEAN CORPUSCULAR HGB CONC 31.5 % (32.0-36.0); MONO % 8.5 % (0.0-8.0); NEUT % 75.6 % (16.0-70.0); PLATELET COUNT 251 TH/MM3 (150-450); RED CELL DISTRIBUTION WIDTH 16.1 % (11.6-17.2); WHITE BLOOD COUNT 10.8 TH/MM3 (4.0-11.0)
[2017-02-26 06:26] LABS: BICARBONATE 29.6 MEQ/L (21.0-32.0); MAGNESIUM 2.2 MG/DL (1.5-2.5); POTASSIUM 4.6 MEQ/L (3.5-5.1)
[2017-02-26] MEDS: RESP: ALBUTEROL 2.5 MG/IPRATROPIUM 0.5 MG NEB (SCH) NEB ×3 (08:49→18:59)
[2017-02-26] MEDS: SODIUM CHLORIDE 0.9% FLUSH 10 ML FLUSH IV FLUSH SCH ×2 (09:22→20:46)
[2017-02-26] MEDS: CYANOCOBALAMIN 100 MCG TAB PO SCH (09:23)
[2017-02-26] MEDS: MAGNESIUM HYDROXIDE SUSP 30 ML CUP PO SCH (09:23)
[2017-02-26] MEDS: DOCUSATE SODIUM 100 MG CAP PO SCH ×2 (09:24→20:45)
[2017-02-26] MEDS: AMIODARONE 200 MG TAB PO SCH ×2 (09:24→20:44)
[2017-02-26] MEDS: MULTIVITAMINS/MINERALS THERAPEUTIC TAB PO SCH (09:24)
[2017-02-26] MEDS: METOPROLOL TARTRATE 25 MG TAB PO SCH ×2 (09:24→20:43)
[2017-02-26] MEDS: FINASTERIDE 5 MG TAB PO SCH (09:24)
[2017-02-26] MEDS: POLYETHYLENE GLYCOL 17 GM PKG PO SCH (09:24)
[2017-02-26] MEDS: MAGNESIUM OXIDE 400 MG TAB PO SCH (12:05)
--- NOTE | 2017-02-26 14:02 | PD.CAR.PN ---
CVT Progress Note CVT: POD #: 2 Subjective/Hospital Course: 71/ male, c/o chest pain , lightheadedness , hx of CAD prior cath . 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 No complaints. Chest tubes removed today. Objective: Vital Signs Date Time Temp Pulse Resp B/P Pulse Ox O2 Delivery O2 Flow Rate FiO2 02/26/17 13:00 94 02/26/17 12:00 108 02/26/17 11:30 98.4 92 18 130/81 94 02/26/17 11:30 94 Nasal Cannula 1.00 02/26/17 11:22 92 02/26/17 10:18 108 02/26/17 08:00 95 Nasal Cannula 1.00 02/26/17 08:00 91 02/26/17 08:00 98.8 95 20 146/82 95 02/26/17 07:00 95 02/26/17 06:00 90 02/26/17 05:00 90 02/26/17 04:00 89 02/26/17 03:00 97 Nasal Cannula 2.00 02/26/17 03:00 99.7 78 18 156/79 97 02/26/17 03:00 82 02/26/17 02:00 75 02/26/17 01:00 79 02/26/17 00:00 78 02/25/17 23:05 Nasal Cannula 2.00 02/25/17 23:00 99 Nasal Cannula 3.00 02/25/17 23:00 95 02/25/17 23:00 98.8 88 18 155/84 99 02/25/17 22:00 84 02/25/17 21:00 92 7/21/17 20:22 98 Nasal Cannula 3.00 02/25/17 20:20 100 Nasal Cannula 4.00 02/25/17 20:20 98.6 84 18 152/92 100 02/25/17 20:00 86 02/25/17 19:00 81 02/25/17 17:35 98.3 81 20 148/92 93 02/25/17 17:35 78 02/25/17 17:35 93 Nasal Cannula 4.00 02/25/17 15:22 96 Nasal Cannula 2.00 02/25/17 15:00 99.2 78 20 142/80 96 Arterial Line 02/25/17 14:00 77 Labs: Laboratory Tests Test 02/26/17 05:00 White Blood Count 10.8 TH/MM3 (4.0-11.0) Red Blood Count 4.30 MIL/MM3 (4.50-5.90) Hemoglobin 9.9 GM/DL (13.0-17.0) Hematocrit 31.2 % (39.0-51.0) Mean Corpuscular Volume 72.6 FL (80.0-100.0) Mean Corpuscular Hemoglobin 22.9 PG (27.0-34.0) Mean Corpuscular Hemoglobin 31.5 % Concent (32.0-36.0) Red Cell Distribution Width 16.1 % (11.6-17.2) Platelet Count 251 TH/MM3 (150-450) Mean Platelet Volume 7.8 FL (7.0-11.0) Neutrophils (%) (Auto) 75.6 % (16.0-70.0) Lymphocytes (%) (Auto) 15.3 % (9.0-44.0) Monocytes (%) (Auto) 8.5 % (0.0-8.0) Eosinophils (%) (Auto) 0.2 % (0.0-4.0) Basophils (%) (Auto) 0.4 % (0.0-2.0) Neutrophils # (Auto) 8.2 TH/MM3 (1.8-7.7) Lymphocytes # (Auto) 1.7 TH/MM3 (1.0-4.8) Monocytes # (Auto) 0.9 TH/MM3 (0-0.9) Eosinophils # (Auto) 0.0 TH/MM3 (0-0.4) Basophils # (Auto) 0.0 TH/MM3 (0-0.2) CBC Comment DIFF FINAL Differential Comment Sodium Level 137 MEQ/L (136-145) Potassium Level 4.6 MEQ/L (3.5-5.1) Chloride Level 102 MEQ/L (98-107) Carbon Dioxide Level 29.6 MEQ/L (21.0-32.0) Anion Gap 5 MEQ/L (5-15) Blood Urea Nitrogen 19 MG/DL (7-18) Creatinine 1.17 MG/DL (0.60-1.30) Estimat Glomerular Filtration 62 ML/MIN (>89) Rate Random Glucose 102 MG/DL (74-106) Calcium Level 8.3 MG/DL (8.5-10.1) Magnesium Level 2.2 MG/DL (1.5-2.5) Result Diagram: 02/26/17 0500 02/26/17 0500 Cardiovascular: RRR Telemetry: NSR Pulmonary: CTA GI/: NABS, NT Incision: dry and intact Plan: Remove barbosa Encourage ambulation Wean oxygen Diurese Cont BB, statin, ASA (1) S/P CABG x 3 Plan: ASA, statin , BB, amiodarone OOB ambulate leave chest tube in pulm toileting hernesto wing CM eval for HHC gentle diuresis (2) CAD (coronary artery disease) (3) Bigeminy (4) Tobacco dependency Plan: smoking cessation (5) Hyperlipemia Plan: on statin (6) Atelectasis Plan: aggressive pulm toileting Kanchan Fowler MD Feb 26, 2017 14:02
[2017-02-26] MEDS: ASPIRIN EC 81 MG TABEC PO SCH (20:44)
[2017-02-26] MEDS: ATORVASTATIN 40 MG TAB PO SCH (20:45)
[2017-02-26] MEDS: SENNOSIDES 8.6 MG TAB PO SCH (20:46)
[2017-02-26] MEDS ORDERED: TERAZOSIN HCL 1 MG CAP PO SCH (21:00)
[2017-02-26] MEDS: traZODone HCL 100 MG TAB PO SCH (22:45)
[2017-02-27] VITALS (17 sets, daily range): BP systolic 120–127; BP diastolic 67–81; PULSE 80–105; RESP 16–18; TEMP 98.3–99.2; O2SAT 91–99
[2017-02-27] MEDS: oxyCODONE/ACETAMINOPHEN 5 MG/325 MG TAB PO PRN (00:21)
[2017-02-27] MEDS: PANTOPRAZOLE SOD 40 MG DELAYED RELEASE TAB PO SCH (06:00)
[2017-02-27] MEDS: RESP: ALBUTEROL 2.5 MG/IPRATROPIUM 0.5 MG NEB (SCH) NEB ×2 (06:59→12:10)
[2017-02-27] MEDS: FINASTERIDE 5 MG TAB PO SCH (08:59)
[2017-02-27] MEDS: METOPROLOL TARTRATE 25 MG TAB PO SCH (08:59)
[2017-02-27] MEDS: MULTIVITAMINS/MINERALS THERAPEUTIC TAB PO SCH (08:59)
[2017-02-27] MEDS: CYANOCOBALAMIN 100 MCG TAB PO SCH (08:59)
[2017-02-27] MEDS: AMIODARONE 200 MG TAB PO SCH (08:59)
[2017-02-27] MEDS: MAGNESIUM HYDROXIDE SUSP 30 ML CUP PO SCH (09:00)
[2017-02-27] MEDS: SODIUM CHLORIDE 0.9% FLUSH 10 ML FLUSH IV FLUSH SCH (09:00)
[2017-02-27] MEDS: DOCUSATE SODIUM 100 MG CAP PO SCH (09:00)
[2017-02-27] MEDS: POLYETHYLENE GLYCOL 17 GM PKG PO SCH (09:00)
[2017-02-27] MEDS ORDERED: INSULIN ASPART SUPPLEMENTAL SCALE SQ SCH (11:00)
[2017-02-27] MEDS ORDERED: METO25TA3 PO (11:39)
[2017-02-27] MEDS ORDERED: AMIO200T PO (11:39)
[2017-02-27] MEDS ORDERED: OXYC1TAB63 PO (11:39)
[2017-02-27] MEDS ORDERED: TERA1CAP3 PO (11:39)
[2017-02-27] MEDS ORDERED: DOCU1CAP39 PO (11:39)
[2017-02-27] MEDS ORDERED: THERM PO (11:39)
--- NOTE | 2017-02-27 11:43 | HHI.DS ---
Discharge Summary Admission Date Feb 24, 2017 at 05:29 Discharge Date: Feb 27, 2017 Admitting Diagnosis CAD Chest pain (1) Premature ventricular contractions (PVCs) (VPCs) Diagnosis: Principal (2) CAD (coronary artery disease) Diagnosis: Principal (3) Intermittent lightheadedness Diagnosis: Principal (4) Atypical chest pain Diagnosis: Principal (5) Atelectasis Diagnosis: Secondary (6) Hyperlipemia Diagnosis: Secondary (7) Bigeminy Diagnosis: Secondary (8) Tobacco dependency Diagnosis: Secondary Procedures CABG x 3 Brief History Subjective/Hospital Course: 71/ male, c/o chest pain , lightheadedness , hx of CAD prior cath . 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 , left > right collateral distal PDA EF 60% PMH: bigemeny, BPH CAD, HTN CBC/BMP: 02/26/17 0500 02/26/17 0500 Significant Findings Laboratory Tests Test 02/24/17 02/25/17 02/25/17 02/26/17 18:40 04:30 14:50 05:00 Magnesium Level 2.6 MG/DL (1.5-2.5) Hemoglobin 10.6 GM/DL 9.9 GM/DL (13.0-17.0) (13.0-17.0) Hematocrit 32.9 % 31.2 % (39.0-51.0) (39.0-51.0) Mean Corpuscular Volume 71.7 FL 72.6 FL (80.0-100.0) (80.0-100.0) Mean Corpuscular Hemoglobin 23.0 PG 22.9 PG (27.0-34.0) (27.0-34.0) Estimat Glomerular Filtration 76 ML/MIN (>89) 62 ML/MIN (>89) Rate Calcium Level 8.4 MG/DL 8.3 MG/DL (8.5-10.1) (8.5-10.1) Urine Ketones TRACE mg/dL (NEG) Urine Occult Blood TRACE (NEG) Urine Leukocyte Esterase SMALL (NEG) Urine RBC 5 /hpf (0-3) Urine Mucus FEW /lpf (OCC) Red Blood Count 4.30 MIL/MM3 (4.50-5.90) Mean Corpuscular Hemoglobin 31.5 % Concent (32.0-36.0) Neutrophils (%) (Auto) 75.6 % (16.0-70.0) Monocytes (%) (Auto) 8.5 % (0.0-8.0) Neutrophils # (Auto) 8.2 TH/MM3 (1.8-7.7) Blood Urea Nitrogen 19 MG/DL (7-18) Imaging Last Impressions Chest X-Ray 02/25/17 0500 Signed Impressions: Service Date/Time: Saturday, February 25, 2017 04:29 - CONCLUSION: 1. New left lower lobe atelectasis versus pneumonia. Dandy Cali MD PE at Discharge chest - CTA COR - RRR ABD - soft, NT, NABS wound - dry and intact Hospital Course surgery: 02/24 ; CABG x 3, PEREZ to LAD, SVG to OM, SVG to PDA, EVH 2500cc crystalloid, 550cc cell saver 59min pump time extubated after surgery 02/25 up in chair, CXR noted, low grade temp, left lower atelectasis needs aggressive pulm toileting OOB, ambulate, gentle diuresis on BB statin , ASA will transfer to stepdown 02/26/17 Progressing nicely. No complaints. Chest tubes removed today. Pt Condition on Discharge: Good Discharge Disposition: Disch w/ Home Health Serv Discharge Instructions DIET: Follow Instructions for: Heart Healthy Diet Activities you can perform: Weight Bearing as Naveed, Shower Only-No Bath Activities to avoid: Lifting/Bending, Driving Follow up Referrals: Appointment for Follow Up - 3 Weeks Cardiology - 2 Weeks PCP Follow-up - 2 Weeks New Orders: BASIC METABOLIC PROF - 2 Weeks CBC NO DIFF - 2 Weeks X-RAY CHEST PA & LAT - 2 Weeks New Medications: Amiodarone (Amiodarone) 200 Mg Tab 200 MG PO Q12HR Regulate Heart Beat #28 Ref 0 TAB Docusate Sodium (Dok) 100 Mg Cap 100 MG PO BID Constipation #28 Ref 0 CAP Metoprolol Tartrate (Metoprolol Tartrate) 25 Mg Tab 25 MG PO BID Blood Pressure Management #60 Ref 3 TAB Multiple Vitamins W/ Minerals (Thera M Plus) 1 Tab 1 TAB PO DAILY Nutritional Supplement #100 Ref 3 TAB Oxycodone-Acetaminophen (Oxycodone-Acetaminophen) 5-325 mg Tab 1 TAB PO Q3H PRN PAIN SCALE 1 TO 5 #30 Ref 0 TAB Terazosin (Terazosin) 1 Mg Cap 1 MG PO HS Manage Prostate Problems #30 Ref 0 CAP Continued Medications: Aspirin DR (Aspirin EC) 81 Mg Tabdr 81 MG PO HS TAB Cyanocobalamin (Vitamin B-12) 250 Mcg Lozg 250 MCG PO DAILY Nutritional Supplement Ref 0 BOTTLE Finasteride (Finasteride) 5 Mg Tab 5 MG PO DAILY Do not crush. Manage Prostate Problems Ref 0 TAB Lisinopril (Lisinopril) 5 Mg Tab 5 MG PO HS Blood Pressure Management Ref 0 TAB Magnesium Oxide (Magnesium Oxide) 400 Mg Tab 400 MG PO DAILY Nutritional Supplement Ref 0 TAB Omeprazole (Omeprazole) 20 Mg Tab 20 MG PO DAILY Ref 0 TAB Simvastatin (Simvastatin) 80 Mg Tab 80 MG PO HS Cholesterol Management Ref 0 TAB Temazepam (Temazepam) 7.5 Mg Cap 7.5 MG PO HS PRN INSOMNIA Ref 0 CAP Trazodone (Trazodone) 100 Mg Tablet 100 MG PO HS Control Depression Ref 0 TAB Discontinued Medications: Metoprolol Tartrate (Metoprolol Tartrate) 25 Mg Tab 25 MG PO DAILY #30 Ref 0 TAB Kanchan Fowler MD Feb 27, 2017 11:43
[2017-02-27] MEDS: MAGNESIUM OXIDE 400 MG TAB PO SCH (12:32)
== END 2017-02-27 13:33 | disposition home health service (06) | DRG 236 ==
LOC: HSDI 02-24 05:29 → HCVR 02-24 11:25 → HCIN 02-25 16:37
PROVIDERS: ADMIT Thoracic Surgery (Cardiothoracic Vascular Surgery); ATTEND Thoracic Surgery (Cardiothoracic Vascular Surgery)
PROC: 06BQ4ZZ Excision of Left Saphenous Vein, Percutaneous Endoscopic Approach (ICD-10-PCS; 2017-02-24)
PROC: 5A1221Z Performance of Cardiac Output, Continuous (ICD-10-PCS; 2017-02-24)
PROC: 02100Z9 Bypass Coronary Artery, One Artery from Left Internal Mammary, Open Approach (ICD-10-PCS; principal; 2017-02-24 07:12)
PROC: 021109W Bypass Coronary Artery, Two Arteries from Aorta with Autologous Venous Tissue, Open Approach (ICD-10-PCS; 2017-02-24 07:12)
DX: I25.10 Atherosclerotic heart disease of native coronary artery without angina pectoris (principal); I10 Essential (primary) hypertension; J98.11 Atelectasis; N40.0 Benign prostatic hyperplasia without lower urinary tract symptoms; E78.5 Hyperlipidemia, unspecified; R00.8 Other abnormalities of heart beat; R42 Dizziness and giddiness
CPT/HCPCS: 71010; 76937; 80048; 81001; 82948; 83735; 85025; 85027; 86850; 86900; 86901; 86920; 93005; 94002; 94150; 94620; 94640; 94664; 94667; 94668; C9248; J0131; J0690; J1644; J1815; J1885; J1940; J2150; J2250; J2370; J2440; J2720; J2765; J2930; J3010; J3370; J3475; J3480; J7120; P9047

== ENCOUNTER 2017-06-01 23:10 | Emergency (ER) | payer OTHER ==
[~2017-06-01] VITALS: Ht 160 cm; Wt 65.0 kg
[~2017-06-01 23:10] MED LIST changes: +AMIO200T PO; +DOCU1CAP39 PO; +METO25TA3 PO; +OXYC1TAB63 PO; -TERA10CA3 PO; +TERA1CAP3 PO; +THERM PO
[2017-06-01 23:11] VITALS: BP 210/102; PULSE 72; RESP 16; TEMP 98.9; O2SAT 97
[2017-06-01 23:29] VITALS: BP 183/87; PULSE 60; RESP 16; O2SAT 98
[2017-06-01] MEDS ORDERED: LISI10TA3 PO (23:39)
--- NOTE | 2017-06-01 23:39 | PD ---
HPI Chief Complaint: Hypertension Time Seen by Provider: 23:27 Travel History International Travel<30 days: No Contact w/Intl Traveler<30days: No Traveled to known affect area: No History of Present Illness HPI 72-year-old male with history of CAD, CABG, hypertension, here for evaluation of elevated blood pressure. Patient has had elevated blood pressure over the last 3 days. [facility] and [facility] instructed him to double his lisinopril daily and double his dose of metoprolol daily. The suggestion was made yesterday, and his blood pressure seems to be increasing. The patient complains of occasional slight frontal headache and lightheadedness. Currently he has noted chest pain or dyspnea. No paresthesias or motor deficits. No visual disturbances. PFSH Past Medical History Hx Anticoagulant Therapy: Yes (81 MG ASA) Anemia: Yes Anxiety: Yes Depression: Yes Cardiac Catheterization: Yes Cardiovascular Problems: Yes ([place]) High Cholesterol: Yes Chest Pain: Yes COPD: Yes Coronary Artery Disease: Yes Diminished Hearing: No Gastrointestinal Disorders: Yes (COLON POYPS) GERD: Yes Genitourinary: Yes (BPH, SCROTAL/TESTICULAR MASS) Headaches: Yes Hypertension: Yes Musculoskeletal: Yes (DDD) Neurologic: Yes (RT CARPLE TUNNEL) Psychiatric: Yes (PTSD, DEPRESSIVE DISORDER) Respiratory: Yes (Sleep apnea) Immunizations Current: Yes Influenza Vaccination: Yes Past Surgical History Abdominal Surgery: Yes (APPENDECTOMY) Appendectomy: Yes Cardiac Surgery: Yes (Triple bypass on February 24 2017) Joint Replacement: No Pacemaker: No Social History Alcohol Use: No Tobacco Use: Yes Substance Use: No Allergies-Medications (Allergen,Severity, Reaction): Coded Allergies: No Known Allergies (Unverified , 06/01/17) Reported Meds & Prescriptions Reported Meds & Active Scripts Active Thera M Plus (Multivitamins/Minerals Therapeutic) 1 Tab 1 Tab PO DAILY Metoprolol Tartrate 25 Mg Tab 25 Mg PO BID Dok (Docusate Sodium) 100 Mg Cap 100 Mg PO BID Reported Effexor (Venlafaxine HCl) 75 Mg Tab 75 Mg PO Q12H Tamsulosin (Tamsulosin HCl) 0.4 Mg Cap 0.4 Mg PO HS Simvastatin 40 Mg Tab 40 Mg PO HS Temazepam 15 Mg Cap 15 Mg PO HS PRN Lisinopril 10 Mg Tab 10 Mg PO DAILY Trazodone (Trazodone HCl) 100 Mg Tablet 100 Mg PO HS Omeprazole 20 Mg Tab 20 Mg PO DAILY Finasteride 5 Mg Tab 5 Mg PO DAILY Do not crush. Vitamin B-12 (Cyanocobalamin) 250 Mcg Lozg 250 Mcg PO DAILY Aspirin EC (Aspirin) 81 Mg Tabdr 81 Mg PO HS Review of Systems Except as stated in HPI: all other systems reviewed are Neg Physical Exam Narrative GENERAL: Pleasant, well-developed, well-nourished, comfortable, no apparent distress. SKIN: Focused skin assessment warm/dry. Midline sternotomy scar that is well- healed. HEAD: Atraumatic. Normocephalic. EYES: Pupils equal and round. No scleral icterus. No injection or drainage. ENT: Mucous membranes pink and moist. NECK: Trachea midline. No JVD. CARDIOVASCULAR: Regular rate and rhythm. No murmur appreciated. RESPIRATORY: No accessory muscle use. Clear to auscultation. Breath sounds equal bilaterally. GASTROINTESTINAL: Abdomen soft, non-tender, nondistended. MUSCULOSKELETAL: No obvious deformities. No clubbing. No cyanosis. No edema. NEUROLOGICAL: Awake and alert. No obvious cranial nerve deficits. Motor grossly within normal limits. Normal speech. PSYCHIATRIC: Appropriate mood and affect; insight and judgment normal. Data Data Last Documented VS Vital Signs Date Time Temp Pulse Resp B/P (MAP) Pulse Ox O2 Delivery O2 Flow Rate FiO2 06/01/17 23:29 60 16 183/87 (119) 98 Room Air 06/01/17 23:11 98.9 Orders Orders Clonidine (Catapres) (06/01/17 23:45) [facility] Medical Decision Making Medical Screen Exam Complete: Yes Emergency Medical Condition: Yes Medical Record Reviewed: Yes Differential Diagnosis Essential hypertension, hypertensive crisis unlikely Narrative Course Initial vital signs show heart rate 72, blood pressure 210/102, pulse ox 97% on room air, oral temp of 98.9F. When the patient was brought back to his exam room his blood pressure was 183/ 87. The patient was given a dose of 0.1 mg of clonidine and his blood pressure improved to 160s over 70s. He is not displaying any signs or symptoms of hypertensive crisis. He states he feels well. He increased his blood pressure medication only yesterday. At this point I believe he is stable for discharge home with outpatient follow-up with his primary care physician this week. He was informed on when to return to the emergency department. He verbalizes understanding and agreement with plan. Diagnosis Primary Impression: Elevated blood pressure reading Referrals: Primary Care Physician 3 days Additional Instructions: Follow-up with your primary care physician this week. Return to the emergency department for worsening symptoms or any other concerns. Disposition: 01 DISCHARGE HOME Condition: Stable Eduin Lerma MD Jun 01, 2017 23:39
[2017-06-01] MEDS ORDERED: SIMV40TA PO (23:40)
[2017-06-01] MEDS ORDERED: TEMA15CA PO (23:40)
[2017-06-01] MEDS ORDERED: TAMS0.4C4 PO (23:40)
[2017-06-01] MEDS ORDERED: VENL75TA PO (23:42)
[2017-06-01] MEDS ORDERED: cloNIDine HCL 0.1 MG TAB PO ONE (23:45)
[2017-06-02 01:14] VITALS: BP 154/82; PULSE 72; RESP 16; O2SAT 96
--- NOTE | 2017-06-02 14:52 | EKG ---
Date Performed: 06/01/2017 Time Performed: 23:23:52 PTAGE: 72 years EKG: Sinus rhythm POSSIBLE LEFT ATRIAL ENLARGEMENT POSSIBLE INFERIOR MYOCARDIAL INFARCTION Compared to previous tracin g the marked right axis deviation has resolved. The frequent PVCs have resolved. The patient now has delayed R wave transition but this may be related to resolution of the axis deviation. Clinical corre lation advised. ABNORMAL ECG PREVIOUS TRACING : 02/25/2017 04.59 DOCTOR: Maggie Hopkins Interpretating Date/Time 06/02/2017 14:46:52
== END 2017-06-02 01:37 | disposition home or self-care (01) ==
LOC: NEPC 23:10
DX: R03.0 Elevated blood-pressure reading, without diagnosis of hypertension (principal); R94.31 Abnormal electrocardiogram [ECG] [EKG]; D64.9 Anemia, unspecified; J44.9 Chronic obstructive pulmonary disease, unspecified; I25.10 Atherosclerotic heart disease of native coronary artery without angina pectoris; Z79.01 Long term (current) use of anticoagulants; Z72.0 Tobacco use
CPT/HCPCS: 93005; 99283

== ENCOUNTER 2017-09-27 21:29 | Emergency (ER) | payer OTHER ==
[~2017-09-27] VITALS: Ht 162.6 cm; Wt 71.0 kg
[~2017-09-27 21:29] MED LIST changes: -AMIO200T PO; -ASPI81TA11 PO; +ASPI81TA23 PO; -LISI-519 PO; +LISI10TA3 PO; -MAGN400T2 PO; -OMEP20TA PO; +OMEP20TA93 PO; -OXYC1TAB63 PO; +SIMV40TA PO; -SIMV80TA PO; +TAMS0.4C4 PO; +TEMA15CA PO; -TEMA7.5C PO; -TERA1CAP3 PO; +TRAZ100T10 PO; -TRAZ100T6 PO; +VENL75TA PO
[2017-09-27 21:38] VITALS: BP 136/71; PULSE 107; RESP 20; TEMP 101.4; O2SAT 97
[2017-09-27 21:46] VITALS: BP 136/71; PULSE 107; RESP 24; TEMP 101.4; O2SAT 97
[2017-09-27] MEDS ORDERED: SODIUM CHLORID 0.9% 500 ML INJ 500 ML IV ONE (22:00)
[2017-09-27] MEDS ORDERED: RESP: ALBUTEROL 2.5 MG/IPRATROPIUM 0.5 MG NEB (SCH) NEB ONE ×2 (22:00→23:30)
[2017-09-27] MEDS ORDERED: ACETAMINOPHEN 325 MG TAB PO ONE (22:00)
[2017-09-27] MEDS ORDERED: ONDANSETRON HCL 4 MG/2 ML VIAL IV PUSH ONE (22:00)
--- NOTE | 2017-09-27 22:00 | PD ---
HPI Chief Complaint: Fever Time Seen by Provider: 21:54 Travel History International Travel<30 days: No Contact w/Intl Traveler<30days: No Traveled to known affect area: No History of Present Illness HPI The patient is a 72-year-old male who presents emergency department for 2 days of cough and cold symptoms. The patient's symptoms started on Tuesday with a dry mouth and nonproductive cough. He also complains of a headache, nausea, one episode of vomiting, and myalgias. The patient did have a family member was recently diagnosed with influenza. The patient does complain of some upper abdominal pain secondary to coughing, but denies any abdominal pain at rest. He denies any associated diarrhea or dysuria. Symptoms are moderate. He did receive an influenza vaccination and pneumococcal vaccination within the last year. The patient is followed by Dr. Marrero at the [place] [facility]. Symptoms are moderate, there are no current alleviating factors. The patient's temperature is been as high as 102 at home. PFSH Past Medical History Hx Anticoagulant Therapy: Yes (81 MG ASA) Anemia: Yes Anxiety: Yes Depression: Yes Cardiac Catheterization: Yes Cardiovascular Problems: Yes ([place]) High Cholesterol: Yes Chest Pain: Yes COPD: Yes Coronary Artery Disease: Yes Diminished Hearing: No Gastrointestinal Disorders: Yes (COLON POYPS) GERD: Yes Genitourinary: Yes (BPH, SCROTAL/TESTICULAR MASS) Headaches: Yes Hypertension: Yes Musculoskeletal: Yes (DDD) Neurologic: Yes (RT CARPLE TUNNEL) Psychiatric: Yes (PTSD, DEPRESSIVE DISORDER) Respiratory: Yes (Sleep apnea) Immunizations Current: Yes Tetanus Vaccination: < 5 Years Influenza Vaccination: Yes Past Surgical History Abdominal Surgery: Yes (APPENDECTOMY) Appendectomy: Yes Cardiac Surgery: Yes (Triple bypass on February 24 2017) Joint Replacement: No Pacemaker: No Other Surgery: Yes Social History Alcohol Use: No Tobacco Use: Yes Substance Use: No Allergies-Medications (Allergen,Severity, Reaction): Coded Allergies: No Known Allergies (Unverified Adverse Reaction, Unknown, 09/27/17) Reported Meds & Prescriptions Reported Meds & Active Scripts Active Thera M Plus (Multivitamins/Minerals Therapeutic) 1 Tab 1 Tab PO DAILY Metoprolol Tartrate 25 Mg Tab 25 Mg PO BID Dok (Docusate Sodium) 100 Mg Cap 100 Mg PO BID Reported Effexor (Venlafaxine HCl) 75 Mg Tab 75 Mg PO Q12H Tamsulosin (Tamsulosin HCl) 0.4 Mg Cap 0.4 Mg PO HS Simvastatin 40 Mg Tab 40 Mg PO HS Temazepam 15 Mg Cap 15 Mg PO HS PRN Lisinopril 10 Mg Tab 10 Mg PO DAILY Trazodone (Trazodone HCl) 100 Mg Tablet 100 Mg PO HS Omeprazole 20 Mg Tab 20 Mg PO DAILY Finasteride 5 Mg Tab 5 Mg PO DAILY Do not crush. Vitamin B-12 (Cyanocobalamin) 250 Mcg Lozg 250 Mcg PO DAILY Aspirin EC (Aspirin) 81 Mg Tabdr 81 Mg PO HS Review of Systems Except as stated in HPI: all other systems reviewed are Neg General / Constitutional: Positive: Fever HENT: Positive: Headaches, Congestion, No: Sore Throat Cardiovascular: No: Chest Pain or Discomfort Respiratory: Positive: Cough, No: Shortness of Breath Gastrointestinal: Positive: Nausea, Vomiting, No: Diarrhea, Abdominal Pain Genitourinary: No: Dysuria Musculoskeletal: Positive: Myalgias Physical Exam Narrative GENERAL: Awake, alert, pleasant 72-year-old male who appears his stated age and is in no acute respiratory distress. SKIN: Focused skin assessment warm/dry. HEAD: Atraumatic. Normocephalic. EYES: Pupils equal and round. No scleral icterus. No injection or drainage. ENT: No nasal bleeding or discharge. Upper dentures in place. Mild erythema in the posterior pharynx. NECK: Trachea midline. No JVD. No meningeal signs. CARDIOVASCULAR: Regular, tachycardic with a heart rate of 105. Well-healed midline sternal scar. RESPIRATORY: No accessory muscle use. Few scattered wheezes. GASTROINTESTINAL: Abdomen soft, non-tender, nondistended. No rebound tenderness. Back: No CVA tenderness. MUSCULOSKELETAL: No obvious deformities. No clubbing. No cyanosis. No edema. NEUROLOGICAL: Awake and alert. No obvious cranial nerve deficits. Motor grossly within normal limits. Normal speech. PSYCHIATRIC: Appropriate mood and affect; insight and judgment normal. Data Data Last Documented VS Vital Signs Date Time Temp Pulse Resp B/P (MAP) Pulse Ox O2 Delivery O2 Flow Rate FiO2 09/27/17 23:10 102.9 103 18 145/82 (103) 97 Room Air Orders Orders Sepsis Workup Initiated (09/27/17 ) Electrocardiogram (09/27/17 21:54) Complete Blood Count With Diff (09/27/17 21:54) Comprehensive Metabolic Panel (09/27/17 21:54) Lactic Acid Sepsis Protocol (09/27/17 21:54) Urinalysis - C+S If Indicated (09/27/17 21:54) Influenzae A/B Antigen (09/27/17 21:54) Blood Culture (09/27/17 21:54) Chest, Single Ap (09/27/17 21:54) Blood Glucose (09/27/17 21:54) Ecg Monitoring (09/27/17 21:54) Iv Access Insert/Monitor (09/27/17 21:54) Oximetry (09/27/17 21:54) Oxygen Administration (09/27/17 21:54) Acetaminophen (Tylenol) (09/27/17 22:00) Ondansetron Inj (Zofran Inj) (09/27/17 22:00) Albuterol-Ipratropium Neb (Duoneb Neb) (09/27/17 22:00) Sodium Chlorid 0.9% 500 Ml Inj (Ns 500 M (09/27/17 22:00) Albuterol-Ipratropium Neb (Duoneb Neb) (09/27/17 23:30) Methylprednisolone So Succ Inj (Solumedr (09/27/17 23:30) Levofloxacin (Levaquin) (09/27/17 23:30) Ibuprofen (Motrin) (09/27/17 23:45) Labs Laboratory Tests Test 09/27/17 22:11 09/27/17 23:24 White Blood Count 4.6 TH/MM3 Red Blood Count 4.85 MIL/MM3 Hemoglobin 10.8 GM/DL Hematocrit 33.2 % Mean Corpuscular Volume 68.5 FL Mean Corpuscular Hemoglobin 22.2 PG Mean Corpuscular Hemoglobin Concent 32.4 % Red Cell Distribution Width 16.5 % Platelet Count 286 TH/MM3 Mean Platelet Volume 7.7 FL Neutrophils (%) (Auto) 75.1 % Lymphocytes (%) (Auto) 14.4 % Monocytes (%) (Auto) 9.8 % Eosinophils (%) (Auto) 0.1 % Basophils (%) (Auto) 0.6 % Neutrophils # (Auto) 3.4 TH/MM3 Lymphocytes # (Auto) 0.7 TH/MM3 Monocytes # (Auto) 0.5 TH/MM3 Eosinophils # (Auto) 0.0 TH/MM3 Basophils # (Auto) 0.0 TH/MM3 CBC Comment AUTO DIFF Differential Comment AUTO DIFF CONFIRMED Blood Urea Nitrogen 22 MG/DL Creatinine 1.40 MG/DL Random Glucose 137 MG/DL Total Protein 7.2 GM/DL Albumin 3.1 GM/DL Calcium Level 8.3 MG/DL Alkaline Phosphatase 66 U/L Aspartate Amino Transf (AST/SGOT) 49 U/L Alanine Aminotransferase (ALT/SGPT) 38 U/L Total Bilirubin 0.3 MG/DL Sodium Level 134 MEQ/L Potassium Level 4.0 MEQ/L Chloride Level 101 MEQ/L Carbon Dioxide Level 25.5 MEQ/L Anion Gap 8 MEQ/L Estimat Glomerular Filtration Rate 50 ML/MIN Lactic Acid Level 1.9 mmol/L Urine Color YELLOW Urine Turbidity SLIGHT Urine pH 6.0 Urine Specific [place] 1.023 Urine Protein 30 mg/dL Urine Glucose (UA) NEG mg/dL Urine Ketones NEG mg/dL Urine Occult Blood TRACE Urine Nitrite NEG Urine Bilirubin NEG Urine Leukocyte Esterase NEG Urine RBC 10-14 /hpf Urine WBC 0-2 /hpf Urine Squamous Epithelial Cells 0-5 /hpf Urine Hyaline Casts 15-19 /lpf Urine Coarse Granular Casts 0-2 /lpf Urine Mucus MOD /lpf Microscopic Urinalysis Comment CULT NOT INDICATED MDM Medical Decision Making Medical Screen Exam Complete: Yes Emergency Medical Condition: Yes Medical Record Reviewed: Yes Interpretation(s) Last Impressions Chest X-Ray 09/27/[id number] Signed Impressions: Service Date/Time: Wednesday, September 27, 2017 22:23 - CONCLUSION: 1. No acute cardiopulmonary disease. Olegario Whitney MD Date/Time Source Procedure Growth Status 09/27/17 22:16 Blood Peripheral Aerobic Blood Culture Pending Received 09/27/17 22:16 Blood Peripheral Anaerobic Blood Culture Pending Received 09/27/17 22:16 Blood Peripheral Aerobic Blood Culture Pending Received 09/27/17 22:16 Blood Peripheral Anaerobic Blood Culture Pending Received 09/27/17 22:17 Nasal Aspirate Influenza Types A,B Antigen (JOSETTE) - Final NEGATIVE FOR FLU A AND B ANTIGEN.... Complete Laboratory Tests Test 09/27/17 22:11 09/27/17 23:24 White Blood Count 4.6 TH/MM3 Red Blood Count 4.85 MIL/MM3 Hemoglobin 10.8 GM/DL Hematocrit 33.2 % Mean Corpuscular Volume 68.5 FL Mean Corpuscular Hemoglobin 22.2 PG Mean Corpuscular Hemoglobin Concent 32.4 % Red Cell Distribution Width 16.5 % Platelet Count 286 TH/MM3 Mean Platelet Volume 7.7 FL Neutrophils (%) (Auto) 75.1 % Lymphocytes (%) (Auto) 14.4 % Monocytes (%) (Auto) 9.8 % Eosinophils (%) (Auto) 0.1 % Basophils (%) (Auto) 0.6 % Neutrophils # (Auto) 3.4 TH/MM3 Lymphocytes # (Auto) 0.7 TH/MM3 Monocytes # (Auto) 0.5 TH/MM3 Eosinophils # (Auto) 0.0 TH/MM3 Basophils # (Auto) 0.0 TH/MM3 CBC Comment AUTO DIFF Differential Comment AUTO DIFF CONFIRMED Blood Urea Nitrogen 22 MG/DL Creatinine 1.40 MG/DL Random Glucose 137 MG/DL Total Protein 7.2 GM/DL Albumin 3.1 GM/DL Calcium Level 8.3 MG/DL Alkaline Phosphatase 66 U/L Aspartate Amino Transf (AST/SGOT) 49 U/L Alanine Aminotransferase (ALT/SGPT) 38 U/L Total Bilirubin 0.3 MG/DL Sodium Level 134 MEQ/L Potassium Level 4.0 MEQ/L Chloride Level 101 MEQ/L Carbon Dioxide Level 25.5 MEQ/L Anion Gap 8 MEQ/L Estimat Glomerular Filtration Rate 50 ML/MIN Lactic Acid Level 1.9 mmol/L Urine Color YELLOW Urine Turbidity SLIGHT Urine pH 6.0 Urine Specific [place] 1.023 Urine Protein 30 mg/dL Urine Glucose (UA) NEG mg/dL Urine Ketones NEG mg/dL Urine Occult Blood TRACE Urine Nitrite NEG Urine Bilirubin NEG Urine Leukocyte Esterase NEG Urine RBC 10-14 /hpf Urine WBC 0-2 /hpf Urine Squamous Epithelial Cells 0-5 /hpf Urine Hyaline Casts 15-19 /lpf Urine Coarse Granular Casts 0-2 /lpf Urine Mucus MOD /lpf Microscopic Urinalysis Comment CULT NOT INDICATED Differential Diagnosis Differential diagnosis includes influenza, viral syndrome, pneumonia, bronchitis , reactive airway disease, sepsis, pyelonephritis, septicemia. Narrative Course IV was established, labs are drawn and sent, and the patient was placed on cardiac telemetry monitoring and continuous pulse oximetry monitoring. EKG was ordered and interpreted. Chest x-rays obtained. Lactic acid blood culture were sent to lab. The patient received normal saline 500 cc, Tylenol 650 mg orally, and Zofran 4 mg intravenously. Chest x-ray was clear. White count is normal. Lactic acid is within normal limits. Influenza screen was negative. Patient was reevaluated, he still had some wheezing throughout the lungs, was administered steroids, nebulizer, and Levaquin orally. I had a discussion with the patient regarding admission/observation to the hospital versus criteria with underlying viral syndrome with secondary bronchitis versus early pneumonia not evaluated on x-ray. The patient does not want to be admitted to the hospital. I did have a discussion with the patient and his at bedside recommending admission, he states he will return to the emergency department if symptoms worsen. He also states she will follow-up with his primary physician at the [place] [facility], Dr. Marrero, tomorrow. I will prescribe the patient antibiotics, steroids, and an albuterol inhaler. He is advised to return immediately if symptoms worsen or progress. Diagnosis Primary Impression: Bronchitis Additional Impression: Febrile illness Patient Instructions: General Instructions Additional Instructions: Please provide the patient a copy of his labs, flu results, and chest x-ray results at discharge. Medications as directed. Return immediately if symptoms worsen or progress. Follow-up with your primary physician as soon as possible tomorrow. Med/Other Pt SpecificInfo: Prescription(s) given Scripts Albuterol 8.5 GM Inh (Proair Hfa 8.5 GM Inh) 90 Mcg/Act Aer 2 PUFF INH Q4-6H Y for SHORTNESS OF BREATH, #1 INHALER 0 Refills 108 mcg/actuation Prov: Ray Vail MD 09/27/17 Levofloxacin (Levaquin) 500 Mg Tablet 500 MG PO DAILY for Infection for 7 Days, #7 TAB 0 Refills Prov: Ray Vail MD 09/27/17 Prednisone (Prednisone) 20 Mg Tab 40 MG PO DAILY, #10 TAB 0 Refills Take 40 mg (2 tablets) daily for 5 days Prov: Ray Vail MD 09/27/17 Disposition: 01 DISCHARGE HOME Condition: Stable Ray Vail MD Sep 27, 2017 22:00
[2017-09-27 22:20] VITALS: O2SAT 98
[2017-09-27 22:23] LABS: AUTOMATED NEUTROPHIL # 3.4 TH/MM3 (1.8-7.7); BASOPHIL % 0.6 % (0.0-2.0); EOSINOPHIL % 0.1 % (0.0-4.0); HEMATOCRIT 33.2 % (39.0-51.0); HEMOGLOBIN 10.8 GM/DL (13.0-17.0); LYMPH % 14.4 % (9.0-44.0); LYMPHOCYTE # 0.7 TH/MM3 (1.0-4.8); MEAN CELL VOLUME 68.5 FL (80.0-100.0); MEAN CORPUSCULAR HEMOGLOBIN 22.2 PG (27.0-34.0); MEAN CORPUSCULAR HGB CONC 32.4 % (32.0-36.0); MEAN PLATELET VOLUME 7.7 FL (7.0-11.0); MONO % 9.8 % (0.0-8.0); MONOCYTE # 0.5 TH/MM3 (0-0.9); NEUT % 75.1 % (16.0-70.0); PLATELET COUNT 286 TH/MM3 (150-450); RED BLOOD COUNT 4.85 MIL/MM3 (4.50-5.90); RED CELL DISTRIBUTION WIDTH 16.5 % (11.6-17.2); WHITE BLOOD COUNT 4.6 TH/MM3 (4.0-11.0)
[2017-09-27 22:32] LABS: CHLORIDE 101 MEQ/L (98-107); SODIUM (NA) 134 MEQ/L (136-145)
[2017-09-27 22:35] LABS: CALCIUM 8.3 MG/DL (8.5-10.1)
[2017-09-27 22:36] LABS: ALBUMIN 3.1 GM/DL (3.4-5.0); BICARBONATE 25.5 MEQ/L (21.0-32.0); BLOOD UREA NITROGEN 22 MG/DL (7-18); GLUCOSE,RANDOM 137 MG/DL (74-106)
[2017-09-27 22:39] LABS: ALT (GPT) 38 U/L (12-78); AST (GOT) 49 U/L (15-37); GLOMERULAR FILTRATION RATE 50 ML/MIN (>89)
[2017-09-27 22:40] LABS: TOTAL BILIRUBIN ADULT 0.3 MG/DL (0.2-1.0); TOTAL PROTEIN 7.2 GM/DL (6.4-8.2)
[2017-09-27 22:42] LABS: ALKALINE PHOSPHATASE 66 U/L (45-117)
[2017-09-27 23:10] VITALS: BP 145/82; PULSE 103; RESP 18; TEMP 102.9; O2SAT 97
--- NOTE | 2017-09-27 23:10 | RADRPT ---
EXAM DATE/TIME: 09/27/2017 22:23 [facility] COMPARISON: CHEST SINGLE AP, February 25, 2017, 4:29. INDICATIONS : Cough and fever for 4 days. MEDICAL HISTORY : Myocardial infarction. COPD. Hypercholesterol. Hypertension. SURGICAL HISTORY : Appendectomy. CABG. ENCOUNTER: Initial ACUITY: 4 - 6 days PAIN SCORE: 0/10 LOCATION: Bilateral chest FINDINGS: A single view of the chest demonstrates the lungs to be symmetrically aerated without evidence of mas s, infiltrate or effusion. Stable median sternotomy wires. The cardiomediastinal contours are unrema rkable. Osseous structures are intact. CONCLUSION: 1. No acute cardiopulmonary disease. Olegario Whitney MD on September 27, 2017 at 23:08 Board Certified Radiologist. This report was verified electronically.
[2017-09-27 23:28] LABS: BILIRUBIN, URINE NEG (NEG); BLOOD, URINE TRACE (NEG); GLUCOSE,URINE NEG (NEG); KETONE, URINE NEG (NEG); NITRITE,URINE NEG (NEG); URINE LEUKOCYTE ESTERASE NEG (NEG)
[2017-09-27] MEDS ORDERED: methylPREDNISolone SOD SUCC 125 MG/2 ML VIAL IV PUSH ONE (23:30)
[2017-09-27] MEDS ORDERED: LEVOFLOXACIN 500 MG TAB PO ONE (23:30)
[2017-09-27 23:42] LABS: HYALINE CAST, URINE 15-19 /lpf (RARE); MUCUS URINE MOD /lpf (OCC); SQUAMOUS EPITHELIAL CELL URINE 0-5 /hpf (0-5); URINE COLOR YELLOW (YELLW/STRAW)
[2017-09-27 23:43] LABS: WBC, URINE 0-2 /hpf (0-5)
[2017-09-27] MEDS ORDERED: IBUPROFEN 400 MG TAB PO ONE (23:45)
[2017-09-27] MEDS ORDERED: PRED20 PO (23:49)
[2017-09-27] MEDS ORDERED: LEVA500T33 PO (23:49)
[2017-09-27] MEDS ORDERED: ALBUAER3 INH (23:49)
[2017-09-27 23:54] VITALS: BP 140/85; PULSE 95; RESP 18; TEMP 99.9; O2SAT 97
--- NOTE | 2017-09-28 07:57 | EKG ---
Date Performed: 09/27/2017 Time Performed: 22:11:35 PTAGE: 72 years EKG: SINUS TACHYCARDIA POSSIBLE LEFT ATRIAL ENLARGEMENT SEPTAL MYOCARDIAL INFARCTION ABNORMAL EC G PREVIOUS TRACING : 06/01/2017 23.23 DOCTOR: Lalo Mora Interpretating Date/Time 09/28/2017 07:53:27
== END 2017-09-28 00:08 | disposition home or self-care (01) ==
LOC: PHED 21:29
DX: J40 Bronchitis, not specified as acute or chronic (principal); R50.9 Fever, unspecified; I10 Essential (primary) hypertension; I25.10 Atherosclerotic heart disease of native coronary artery without angina pectoris; I25.2 Old myocardial infarction; E78.00 Pure hypercholesterolemia, unspecified; J44.9 Chronic obstructive pulmonary disease, unspecified; R94.31 Abnormal electrocardiogram [ECG] [EKG]; F32.9 Major depressive disorder, single episode, unspecified; F43.10 Post-traumatic stress disorder, unspecified; Z72.0 Tobacco use; Z95.1 Presence of aortocoronary bypass graft; Z79.82 Long term (current) use of aspirin; Z79.899 Other long term (current) drug therapy
CPT/HCPCS: 71045; 80053; 81001; 83605; 85025; 87040; 87804; 93005; 94640; 94664; 96361; 96374; 99285; J2405; J2930; J7040